=== PATIENT | female | born 1985 | race Two or more races ===

== ENCOUNTER 2024-09-26 05:47 | Emergency (ER) | payer MEDICAID, SELFPAY ==
[2024-09-26] VITALS (9 sets, daily range): BP systolic 129–152; BP diastolic 70–98; PULSE 70–83; RESP 14–20; TEMP 36.7–36.9; O2SAT 97–100; BMI 43.4
--- NOTE | 2024-09-26 05:57 | XR_ITS ---
Examination: PA lateral chest 2 views TECHNIQUE: Upright PA lateral chest 2 views Exam date and time: September 26, 2024 0823 hours INDICATIONS: Left-sided chest pain left breast pain today FINDINGS: Normal heart size Lungs are clear. The osseous structures are intact IMPRESSION: No active disease
--- NOTE | 2024-09-26 05:57 | EKG_ITS ---
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
--- NOTE | 2024-09-26 05:58 | PD.EDRME ---
Rapid Medical Screening Exam RME Arrival date/time: 09/26/24 05:47 39-year-old female presents emergency department complaining of left upper chest pain that radiates towards back and shoulder that started at 4 AM this morning. Patient reports recently had miscarriage. Chief Complaint: General Adult/Misc Complain Vital signs: Vital Signs Temperature 98.3 F 09/26/24 05:55 Pulse Rate 83 09/26/24 05:55 Respiratory Rate 19 09/26/24 05:55 Blood Pressure 139/84 H 09/26/24 05:55 Pulse Oximetry (%) 98 09/26/24 05:55 Oxygen Delivery Method Room Air 09/26/24 05:55 Vital signs reviewed by provider: Yes
--- NOTE | 2024-09-26 06:04 | PC.NURSE ---
Pt to room 6 at this time from lobby. Assumed care of pt.
--- NOTE | 2024-09-26 06:14 | EDNOTE_ITS ---
ED Chest Pain RME/HPI General Chief Complaint: General Adult/Misc Complain Stated Complaint: Left flank pain Since 4am Arrival date/time: 09/26/24 05:47 RME / HPI RME / HPI narrative: 09/26/24 05:47 HPI:39-year-old female known case of HTN, and misccarriage 2 weeks ago and still has a sac not evacauted presented to the ED due to Left sided chest pain, the pain woke her up from sleeping at 4 am, sharp in character, radiate to the b ack. it increases with deep breath. no cough, fever, or flu like symptoms and hx of carrying heavey objects or vigorous physical activity. Home medications:lisinopril PMH:as above PFX:mother of stomache cancer Social hx: Alcohol:socially, last drink yesterday Related Data Home Medications ?Medication ?Instructions ?Recorded ?Confirmed vits no.124-ferrous fum 1 tab PO QDAY 12/24/18 12/24/18 27 mg iron-folic acid 800 mcg tablet ( Vitamin) Previous Rx's ?Medication ?Instructions ?Recorded diphenhydramine HCl 50 mg capsule 50 mg PO TID PRN allergy symptoms 03/25/21 #30 caps lisinopril 20 mg tablet 20 mg PO QDAY hypertension #14 tabs 04/11/21 ibuprofen 400 mg tablet 400 mg PO Q6H PRN chest pain 3 09/26/24 days #18 tabs Allergies Allergy/AdvReac Type Severity Reaction Status Date / Time No Known Allergies Allergy Unverified 09/26/24 05:50 ED Exam Narrative Physical exam: GEN: AOx3, able to speak full sentences HEENT: NC/AC, oral mucosa moist, neck supple CVS: RRR, S1-S2 present, no murmurs appreciated RESP: CTAB GI: soft, non distended, non tender, NBS MSK: able to move all 4 limbs, no lower extremity edema SKIN: warm and dry ROD PULLER AND COILER: CN II-XII and Sensation grossly intact. Course Quality Measures none Orders Category Date Time Status EKG (ED ONLY) *Do not use* NOW Care 09/26/24 05:57 Completed EKG (ED ONLY) *Do not use* NOW Care 09/26/24 12:23 Completed EKG (ED Only) Stat Exams 09/26/24 05:57 Draft EKG (ED Only) Stat Exams 09/26/24 12:23 Draft XR chest 2V Stat Exams 09/26/24 05:57 Completed B-Type Natriuretic Peptide Stat Lab 09/26/24 06:30 Completed Beta HCG,Quantitative Stat Lab 09/26/24 06:30 Completed CBC Stat Lab 09/26/24 06:30 Completed Comprehensive Metabolic Panel Stat Lab 09/26/24 06:30 Completed D-Dimer Stat Lab 09/26/24 06:30 Completed Drug Screen,Urine Stat Lab 09/26/24 06:03 Completed Lipase Stat Lab 09/26/24 06:30 Completed Magnesium Stat Lab 09/26/24 06:30 Completed Partial Thromboplastin Time Stat Lab 09/26/24 06:30 Completed Prothrombin Time with INR Stat Lab 09/26/24 06:30 Completed Troponin I Stat Lab 09/26/24 06:30 Completed Troponin I Stat Lab 09/26/24 12:40 Completed Urinalysis, C/S if Indicated Stat Lab 09/26/24 06:03 Completed Morphine Inj Med 09/26/24 07:03 Discontinued 1 mg IVP X1 ONE Vital Signs Vital signs: Vital Signs Temperature 98.3 F 09/26/24 05:55 Pulse Rate 83 09/26/24 05:55 Respiratory Rate 19 09/26/24 05:55 Blood Pressure 139/84 H 09/26/24 05:55 Pulse Oximetry (%) 98 09/26/24 05:55 Oxygen Delivery Method Room Air 09/26/24 05:55 Chest Pain MDM Narrative MDM Narrative:: EKG came back normal, troponin within normal limits, chest x-ray showed no active disease at this time. Patient reported that she had miscarriage at 8 weeks when she went to visit her doctor who told her that there is no fetus in the sac and she most likely had a miscarriage. She reported that she is following up with the investor relations specialist Archana here in [place]. She reported that she has an appointment with him on the 18 of this month after 5 days to keep monitoring her remaining sac. Patient denied any abdominal pain, vaginal discharge, fever, chills, diarrhea or constipation. Patient data External records reviewed:: [facility] previous records Clinical information provided by:: patient Social determinants that could affect healthcare access:: none Patient has the following chronic illnesses:: HTN How is presenting disease/condition affected by chronic disease/condition?: uneffected by Evaluation data The following diagnostics were reviewed and interpreted by me:: lab results, radiology exam(s) and EKG tracing(s) Lab and/or radiology exams considered but not ordered:: NONE Interpretation Summary: Chest pain most likely of musculoskeletal character versus pleuritic chest pain secondary to simple infection. Medications / Prescriptions Medications or Prescriptions considered but not ordered:: None Medication administrations:: Medication Administration History Discontinued Medications Morphine Sulfate (Morphine Sulf Inj 10 Mg/Ml Vial) 1 mg IVP X1 ONE Stop: 09/26/24 07:04 Last Admin: 09/26/24 08:00 Dose: Not Given Documented By: MS Non-Admin Reason: Patient Refused None Consultations Consultation(s) initiated? (list below): No Diagnosis Most likely diagnosis given after review of the tests above:: Muscleoskeletal pain Admission Indicated Admission indicated?: not indicated Admission Request Was there a request for admission?: No Disposition Plan Disposition Plan: Discharge Discharge Attestation Discharge Attestation: The patient and all family members were given an opportunity to ask questions and understood the discharge instructions. Discharge instructions specifically effects, indications for sooner follow up or return to the emergency department, and the expected course of current diagnosis. Patient condition: Stable Discharge Plan Plan Patient Disposition: HOME (Self Care) Patient condition on transfer: Stable Health Concerns: Follow-up with your primary care physician within 3 days from discharge Follow-up with your investor relations specialist regarding your miscarriage within 3 days from discharge In case of worsening of your pain please return to the ED as soon as possible Use ibuprofen 400 mg orally 4 times a day as needed Prescriptions/Referrals Prescriptions/Med Rec: New ibuprofen 400 mg tablet 400 mg PO Q6H PRN (Reason: chest pain) 3 Days Qty: 18 0RF No Action diphenhydramine HCl 50 mg capsule 50 mg PO TID PRN (Reason: allergy symptoms) Qty: 30 0RF lisinopril 20 mg tablet 20 mg PO QDAY Qty: 14 0RF vit no.[id number] [ Vitamin] 27 mg iron- 800 mcg Tablet 1 tab PO QDAY Referrals: Ania Up MD [Primary Care Provider] - In 1 week Problem List Clinical Impression: Muscle ache, Viral infection Patient/Caregiver Discharge Instructions Education Materials: Communicating About Pain Print Language: Haitian Stand Alone Forms: Lauren Award Info., Patient Portal Info Letter
--- NOTE | 2024-09-26 06:18 | PC.NURSE ---
Resident at the bedside at this time.
[2024-09-26 06:43] LABS: Collection Type, Urine Clean Catch
[2024-09-26 06:45] LABS: Basophils % (Auto) 0 % (0-2.5); Eosinophils # (Auto) 0.3 Thou/mm3 (0.0-0.5); Eosinophils % (Auto) 4 % (0-10); Hemoglobin 12.7 g/dL (12.0-16.0); Immature Granulocytes % (Auto) 0 % (0-0); Immature Granulocytes Auto 0.03 Thou/mm3 (0.00-0.00); Lymphocytes # (Auto) 2.4 Thou/mm3 (1.0-4.8); Lymphocytes % (Auto) 29 % (10-50); Mean Corpuscular HGB Conc 34.3 g/dl (31.0-37.0); Mean Corpuscular Hemoglobin 29.7 pg (25.0-35.0); Mean Corpuscular Volume 86 fL (80-100); Monocytes # (Auto) 0.6 Thou/mm3 (0.0-0.8); Monocytes % (Auto) 7 % (0-12); Neutrophils # (Auto) 4.8 Thou/mm3 (1.8-7.7); Neutrophils % (Auto) 59 % (37-80); Nucleated Red Blood Cell % 0 /100 WBC (0); Platelet Count 250 Thou/mm3 (140-440); RDW Standard Deviation 38.3 fL (36.4-46.3); Red Blood Count 4.28 Miln/mm3 (4.00-5.20); White Blood Count 8.1 Thou/mm3 (3.6-11.0)
[2024-09-26 06:59] LABS: Bilirubin,Urine Negative (Negative); Blood,Urine Trace (Negative); Clarity,Urine Clear (Clear/Hazy); Color,Urine Yellow (Lt Yel-Yel); Culture Indicated,Urine Not Indicated; Glucose, Urine Negative (Negative); Ketones,Urine 1+ (Negative); Leukocyte Esterase,Urine Positive (Negative); Nitrite,Urine Negative (Negative); Protein,Urine Trace (Neg - Trace); RBC,Urine 4 /hpf (0-3); Specific Gravity,Urine 1.018 (1.001-1.035); Squamous Epithelial Cell,Urine 3 /hpf (0-5); Urobilinogen,Urine Negative mg/dL (0.0-1.0); WBC,Urine 2 /hpf (0-5)
[2024-09-26 07:02] LABS: D-Dimer < 250 ng/mL (<600)
[2024-09-26 07:04] LABS: Partial Thromboplastin Time 23.4 Seconds (22.0-36.0); Prothrombin Time 10.9 Seconds (9.0-12.2)
[2024-09-26 07:05] LABS: B-Type Natriuretic Peptide < 20 pg/mL (0-100)
[2024-09-26 07:12] LABS: Alanine Aminotransferase 11 U/L (10-49); Albumin, Serum 4.4 gm/dL (3.5-5.0); Albumin/Globulin Ratio 1.7 (1.2-2.2); Alkaline Phosphatase 64 U/L (46-116); Anion Gap 6 (7-16); Aspartate Amino Transferase 14 U/L (0-34); BUN/Creatinine Ratio 8 Ratio (12-20); Bilirubin,Total 0.5 mg/dL (0.3-1.2); Blood Urea Nitrogen < 5 mg/dL (9-23); Calcium 9.3 mg/dL (8.3-10.6); Calcium (Corrected) 9.3 mg/dL (8.5-10.1); Carbon Dioxide 22.8 mMol/L (20.0-31.0); Chloride 106 mMol/L (98-107); Creatinine (Component) 0.6 mg/dL (0.6-1.3); Estimated Creatinine Clearance 139.9 mL/min (>60); Globulin 2.6 gm/dL (2.3-3.5); Glucose 93 mg/dL (74-106); Lipase 30 U/L (12-53); Magnesium 1.6 mg/dL (1.6-2.6); Osmolality,Calculated 267 (275-295); Potassium 3.6 mMol/L (3.4-5.1); Sodium 135 mMol/L (136-145); Troponin I < 0.002 ng/mL (0.0-0.045); eGFR > 60 See Note
[2024-09-26 07:12] LABS: Amphetamine/Methamp Scrn,U Negative (Negative); Barbiturate Screen,Urine Negative (Negative); Benzodiazepines Screen,Urine Negative (Negative); Benzoylecgonine Screen, Ur Negative (Negative); Fentanyl Screen,Urine Negative (Negative); Opiate Screen,Urine Negative (Negative); THC Screen,Urine Negative (Negative)
[2024-09-26 07:31] LABS: Beta HCG,Quantitative 8624 mIU/mL (<5.0)
--- NOTE | 2024-09-26 12:23 | EKG_ITS ---
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
[2024-09-26 13:04] LABS: Troponin I < 0.002 ng/mL (0.0-0.045)
== END 2024-09-26 16:10 | disposition home or self-care (01) ==
PROVIDERS: Student in an Organized Health Care Education/Training Program; Emergency Provider Emergency Medicine; PCP Obstetrics & Gynecology
DX: B34.9 Viral infection, unspecified (principal); N64.4 Mastodynia; R07.9 Chest pain, unspecified; I10 Essential (primary) hypertension
CPT/HCPCS: 36415; 71046; 80053; 80307; 81001; 83690; 83735; 83880; 84484; 84702; 84703; 85025; 85379; 85610; 85730; 93005; 99283

== ENCOUNTER 2025-03-12 11:27 | Outpatient (AMB) | payer MEDICAID, SELFPAY ==
--- NOTE | 2025-03-12 11:41 | OBCLNT_ITS ---
Vital Signs 03/12/25 11:44 Height 1.55 m Height Method Stated Weight 106.141 kg Weight Measurement Method Standing Scale BMI 44.1 BP 133/83 H Blood Pressure Source Automatic Cuff Blood Pressure Location Right Upper Arm Position Sitting Respiration 20 Pulse 82 Pulse Source Monitor Temp 98.4 F Temp Source Temporal Artery Scan Pulse Oximetry (%) 98 Oxygen Delivery Method Room Air Allergies/Home Meds Allergies & Medications Allergies No Known Allergies Allergy (Unverified 03/12/25 11:45) Medication Reconciliation vits no.124-ferrous fum 27 mg iron-folic acid 800 mcg tablet ( Vitamin) 1 tab PO QDAY 12/24/18 [History Confirmed 03/12/25] diphenhydramine HCl 50 mg capsule 50 mg PO TID PRN allergy symptoms #30 caps 03/25/21 [Rx Confirmed 03/12/25] lisinopril 20 mg tablet 20 mg PO QDAY hypertension #14 tabs 04/11/21 [Rx Confirmed 03/12/25] Intake Visit Data Collection New Patient or Established: Established Patient (seen at [facility] within 3 years) Reason for Visit:: First appointment for , nausea without vomiting, dizziness when getting up too fast, breast tenderness Do You Feel Safe at Home: Yes Authorities Contacted: N/A PCP or OBGYN visit in last 3 months: Yes Pain Present Currently: No Smoking Status Smoking Status: Never smoker Questionnaires Covid-19 Vaccine Questionnaire Has patient been vacinated for Covid-19 Have you been vacinated for Covid-19: Yes PHQ-9 PHQ-2 Over the last 2 weeks, how often have you been bothered by any of the following problems? 1. Little interest or pleasure in doing things: not at all 2. Feeling down, depressed, or hopeless: not at all Total score: 0 Depression screen completed yes Social History Living Situation History Marital Status: Lives With: Spouse Housing: House Tobacco History Smoking Status: Never smoker Alcohol History Alcohol Intake: Never Domestic Abuse History Do You Feel Safe at Home: Yes Past Medical History Past Medical History Have you ever been diagnosed with any of the following: Cardiology Problems Congestive Heart Failure: No Hypertension: Yes Respiratory Problems Chronic Obstructive Pulmonary Disease (COPD): No Genital/Urinary Problems Renal Disease: No Endocrine Problems Diabetes Mellitus Type 1: No Diabetes Mellitus Type 2: No History of Present Illness COLLETTE Pimentel Fouzia Sloan, a patient with a history of hypertension and a previous miscarriage at 17 weeks due to trisomy 18, presents for her first appointment. Her last menstrual period was on December 29, 2024, placing her at 10 weeks and 3 days gestation with an estimated due date of October 05, 2025. The patient reports experiencing early symptoms, including nausea without vomiting, dizziness upon standing up quickly, and breast tenderness. She denies any other problems related to her current . Ms. Sloan is currently taking vitamins as recommended. Regarding her medical history, the patient has been diagnosed with hypertension and is currently taking labetalol 100 mg twice daily, prescribed by Dr. Sheriff. This medication was initially started during her previous in 2022, which ended in miscarriage at 17 weeks. The patient reports that she has continued the medication since then and feels it has been more effective than previous treatments. She denies any history of pre-eclampsia or other - related complications in her prior pregnancies. The patient's previous was complicated by abnormalities detected on ultrasound, including signs of hydrocephalus. An amniocentesis was performed, which revealed trisomy 18, ultimately leading to the miscarriage at 17 weeks gestation. The patient received care for this at [facility]. Obstetric History - GTPAL: G2 T0 L0 - Current : - Gestational age: 10 weeks and 3 days by last menstrual period - Estimated due date: October 05, 2025 - history: - Miscarriage at 17 weeks gestation in 2022 - Fetus diagnosed with trisomy 18 via amniocentesis - Ultrasound showed signs of hydrocephalus Medical History - Hypertension diagnosed in 2022, controlled with medication Surgical History - Amniocentesis during previous at 17 weeks gestation Medications and Supplements - vitamins - Labetalol 100 mg by mouth twice daily - Started in 2022 during previous - Continued after miscarriage - Patient feels it works better than other medications Review of Systems General: Positive for dizziness upon standing. HEENT: Positive for breast tenderness. Gastrointestinal: Positive for nausea without vomiting. OB Ultrasound OB Ultrasound Ultrasound technique: transabdominal Gestational sac assessment: Presence, location, size, shape: - Ultrasound (03/12/2025): - Gestational age: 9 weeks and 2 days - heart rate: 173 bpm (normal) - Anatomically normal appearance OB Initial Visit OB Flowsheet OB Flowsheet Initial Weight: Not Recorded Date -?-?-?-?-?-?-?-?-?-?-?-?- EGA Weight Edema CTX Effacement BP Fundal ht Pres Dilation Effacement Station Visit Note Alb Glu FHR Mov 03/12/25 -?-?-?-?-?-?-?-?-?-?-?-?- 10w 3d 106.141 kg 133/83 Nico ashly Sloan, A1 at 10w3d (LMP 12/29/2024, QUINN: 10/05/2025), presents for initial visit. No CTX/LOF/VB. Reports dizziness when st anding, breast tenderness, and nausea without vomiting. History of miscarriage at 17w in 2022 due to trisomy 18. Current meds: labetalol 100 mg BID (ongoing since 2022). Ultrasound (03/12/2025): Single IUP, CRL consistent with 9w2d, FHR 173 bpm, anatomically normal appearance. BP: Elevated. Assessment & Plan: A1 at 10w3d, first visit. H istory of trisomy 18 and chronic hypertension. Order initial OB labs: blood type, infec tious panel Provide genetic screening form (trisomie s 13, 18, 21) Continue vitamins Continue labetalol 100 mg BID Recheck BP at next visit; monitor for pr e-eclampsia Educate on early symptoms and positional dizziness Follow-up in 10 days for lab review Refer to MFM in 2nd trimester due to zion or trisomy 18 Reviewed education and warning signs Menstrual History Menstrual reliability: definite Flow: normal Menstrual regularity: regular Monthly: Yes Age at menarche: 12 Date of positive home test: 02/04/25 OB History : 7 Para: 4 Hx Total # of Abortions (Spontaneous & Elective): 3 # of Living Children: 4 Delivery History 1st : Child's name: frankie date: 01/14/02 sex: male Gestational age at delivery (weeks): 29 Delivery type: vaginal weight (lbs): 1360.777 g History of depression before or after : Yes 2nd : Child's name: radha date: 06/09/04 sex: female Gestational age at delivery (weeks): 40 Delivery type: vaginal weight (lbs): 4082.331 g History of depression before or after : Yes Additional comments: after pregnacy 3rd : Child's name: ann date: 06/09/17 sex: male Gestational age at delivery (weeks): 41 Delivery type: vaginal weight (lbs): 3175.147 g weight (oz): 56.699 g History of depression before or after : No 4th : Child's name: stefania date: 12/22/18 sex: male Gestational age at delivery (weeks): 41 Delivery type: vaginal weight (lbs): 3628.739 g History of depression before or after : No Infection History & Risk Evaluation History of STDs: none HIV risk evaluation: low risk Hepatitis B risk evaluation: low risk Patient or partner has history of Genital Herpes: No Varicella/chicken pox status: immunized Genetic Screening & History Genetic Screening/Teratology Counseling - Includes patient, baby's father, or anyone in either family with: 1. Patient's age 35 years or older as of estimated date of delivery: Yes 2. Thalassemia (Guatemalan, Dominican, Mediterranean, or Background); MCV less than 80: No 3. Neural Tube Defect (Meningomyelocele, Spina Bifida, or Anencephaly): No 4. Congenital Heart Defect: No 5. Down Syndrome: No 6. Wicho-Sachs (Ashkenazi Bahai, Cajun, Slovenian Fijian): No 7. Zena Disease (Ashkenazi Bahai): No 8. Familial Dysautonomia (Ashkenazi Bahai): No 9. Sickle Cell Disease or Trait (): No 10. Hemophilia or other blood disorders: No 11. Muscular Dystrophy: No 12. Cystic Fibrosis: No 13. Florina's Chorea: No 14. Mental Retardation/Autism: No 15. Other inherited genetic or chromosomal disorder: No 16. Maternal Metabolic Disorder (EG,TYPE 1 Diabetes, PKU): No 17. Patient or baby's father had a child with defects not listed above: No 18. Recurrent loss or a stillbirth: No 19. Medications (including supplements, vitamins, herbs or otc drugs)/illicit/recreational drugs/alcohol since last menstrual period: No 20. Any other: No Infection History 1. Live with someone with TB or exposed to TB: No 2. Rash or viral illness since last menstrual period: No 3. Hepatitis B,C: No Other (see comments) Source: [employer] Exam General Limitations: no limitations General Appearance: alert, in no apparent distress and comfortable Head Head exam: atraumatic and normocephalic Eye Eye exam: Present normal appearance, PERRL and EOMI Neck Neck exam: Present normal inspection and full ROM Chest Chest inspection: Present normal inspection and symmetric chest wall rise; Absent tenderness Resp Respiratory exam: Present normal lung sounds bilaterally; Absent respiratory distress Card Cardiovascular exam: Present regular rate and normal rhythm Abdominal Abdominal exam: Present soft and normal bowel sounds; Absent tenderness, guarding, rebound or rigidity Neuro Neurological exam: Present alert and oriented X3 Psych Psychiatric exam: Present normal affect Assessment & Plan Diagnosis / Problem List (1) Supervision of high risk , unspecified, first trimester: Status: Acute Plan Fouzia Sloan is a patient at 10 weeks and 3 days gestation presenting for her first visit with a history of miscarriage at 17 weeks due to trisomy 18 in a previous . Intrauterine Assessment: Patient reports last menstrual period on December 29, which calculates to an estimated due date of October 05. Ultrasound performed today shows a single intrauterine measuring 9 weeks and 2 days, which is consistent with dates. heartbeat visualized at 173 bpm, which is within normal range. No obvious abnormalities noted on ultrasound at this early gestational age. Plan: - Perform initial lab work including blood type, infection screening - Provide genetic screening form for Down syndrome and other trisomies (13, 18, 21) - Continue vitamins - Follow-up appointment in 10 days to review lab results - Plan for maternal- medicine consultation in the second trimester due to history of trisomy 18 in previous Chronic hypertension Assessment: Patient reports current use of labetalol 100 mg BID for hypertension, prescribed by Dr. Sheriff in 2022 during a previous . Patient states the medication has been effective in controlling her blood pressure. Labetalol is considered safe for use during . Plan: - Continue labetalol 100 mg PO BID - Recheck blood pressure at next visit - Monitor for signs of pre-eclampsia throughout Early symptoms Assessment: Patient reports nausea without vomiting, dizziness upon standing, and breast tenderness. These symptoms are consistent with normal early changes. Plan: - Reassure patient that symptoms are normal - Educate on management of early symptoms - Monitor for worsening of symptoms at follow-up visits Educated the patient on the importance of care, including taking vitamins with folic acid, iron, and calcium. Emphasized avoiding alcohol, smoking, and certain medications. Discussed common symptoms like nausea and fatigue, advising small, frequent meals and adequate hydration. Explained the need for regular check-ups and recommended safe physical activities. Instructed on signs of complications, such as severe cramping or bleeding, and when to seek immediate medical attention. Highlighted the importance of a balanced diet and avoiding high-risk foods. Encouraged open communication about any concerns or questions. Encouraged keeping up with all appointments and tests Office Procedures OB Clinic LOC & Office Proc's Nursing/Assessment Patient Status: Initial/New Patient OB Clinic Nursing Assessment: Medication Reconciliation, Update PMH in EMR and Vital Signs OB Clinic Coordination of Care: Complex Care and Chronic Disease 1-5, Education Complex Pt/Fam, Consent,records obtained, informed consent, Lab and Imaging orders, Results/Orders obtained and Staff clarify orders New Patient Charge New Patient Point Assignment: 1109 New Patient Point Charge: SHELTER MONITOR Level 3 ([id number]) Bedside Ultrasounds US Transabdominal <14 weeks at bedside: Yes
[2025-03-12 11:44] VITALS: BP 133/83; PULSE 82; RESP 20; TEMP 36.9; O2SAT 98; BMI 44.1
== END 2025-03-12 12:02 | disposition home or self-care (01) ==
LOC: HODSOBC 11:27
PROVIDERS: PCP Obstetrics & Gynecology; Referring Provider Obstetrics & Gynecology; Supervising Provider Obstetrics & Gynecology; Visit Provider Obstetrics & Gynecology
DX: O09.521 Supervision of elderly multigravida, first trimester (principal); O09.291 Supervision of pregnancy with other poor reproductive or obstetric history, first trimester; O09.891 Supervision of other high risk pregnancies, first trimester; O10.911 Unspecified pre-existing hypertension complicating pregnancy, first trimester; Z87.59 Personal history of other complications of pregnancy, childbirth and the puerperium; Z3A.10 10 weeks gestation of pregnancy; Z79.899 Other long term (current) drug therapy
CPT/HCPCS: 76801; 99203; G0463

== ENCOUNTER 2025-03-26 09:03 | Outpatient (AMB) | payer MEDICAID, SELFPAY ==
[2025-03-26 09:28] VITALS: BP 127/84; PULSE 85; RESP 18; TEMP 36.2; O2SAT 98; BMI 44.4
--- NOTE | 2025-03-26 09:28 | AMB.OBVISIT ---
Vital Signs 03/26/25 09:28 Height 1.55 m Height Method Stated Weight 106.651 kg Weight Measurement Method Standing Scale BMI 44.4 BP 127/84 Blood Pressure Source Automatic Cuff Blood Pressure Location Left Upper Arm Position Sitting Respiration 18 Pulse 85 Pulse Source Monitor Temp 97.2 F Temp Source Oral Pulse Oximetry (%) 98 Oxygen Delivery Method Room Air Allergies/Home Meds Allergies & Medications Allergies No Known Allergies Allergy (Verified 03/26/25 09:29) Medication Reconciliation vits no.124-ferrous fum 27 mg iron-folic acid 800 mcg tablet ( Vitamin) 1 tab PO QDAY 12/24/18 [History Confirmed 03/26/25] diphenhydramine HCl 50 mg capsule 50 mg PO TID PRN allergy symptoms #30 caps 03/25/21 [Rx Confirmed 03/26/25] lisinopril 20 mg tablet 20 mg PO QDAY hypertension #14 tabs 04/11/21 [Rx Confirmed 03/26/25] Intake Visit Data Collection New Patient or Established: Established Patient (seen at [facility] within 3 years) Reason for Visit:: - Routine care at 12 weeks and 3 days gestation Seen by Clinical Staff ONLY (RN/MA): No 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 1. Little interest or pleasure in doing things: not at all 2. Feeling down, depressed, or hopeless: not at all Total score: 0 PHQ-9 3. Trouble falling or staying asleep, or sleeping too much: Not at all 4. Feeling tired or having little energy: Not at all 5. Poor appetite or overeating: Not at all 6. Feeling bad about yourself - or that you are a failure or have let yourself or your family down: Not at all 7. Trouble concentrating on things, such as reading the newspaper or watching television: Not at all 8. Moving or speaking so slowly that other people could have noticed? - Or the opposite - being so fidgety or restless that you have been moving around a lot more than usual: not at all 9. Thoughts that you would be better off or of hurting yourself in some way: Not at all Total score: 0 If you checked off any problems, how difficult have these problems made it for you to do your work, take care of things at home, or get along with other people?: not difficult at all Source: Developed by Drs. Hugo Vargas, Padmini Bazzi, Reji Restrepo and colleagues, with an educational micah from [employer]. 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 - Estimated delivery date: 10/05/2025 - Last menstrual period: 12/29/2024 - Previous visit: - Initial appointment - Lab tests ordered - Patient completed initial labs on 03/22/2025 No contractions/ LOF/VB, No HODGES/VC/RUQ/Epig pain Care OB Visit Log OB Flowsheet Initial Weight: Not Recorded Date <del>?</del> EGA Weight BP Alb Glu CTX Pres Fundal ht FHR Mov Dilation Station Effacement Hx Notes Visit Note 03/12/25 <del>?</del> 10w 3d 106.141 kg 133/83 Fouzia Sloan, A1 at 10w3d (LMP 12/29/2024, QUINN: 10/05/2025), presents for initial visit. No CTX/LOF/VB. Reports dizziness when standing, breast tenderness, and nausea without vomiting. History of miscarriage at 17w in 2022 due to trisomy 18. Current meds: labetalol 100 mg BID (ongoing since 2022). Ultrasound (03/12/2025): Single IUP, CRL consistent with 9w2d, FHR 173 bpm, anatomically normal appearance. BP: Elevated. Assessment & Plan: A1 at 10w3d, first visit. History of trisomy 18 and chronic hypertension. Order initial OB labs: blood type, infectious panel Provide genetic screening form (trisomies 13, 18, 21) Continue vitamins Continue labetalol 100 mg BID Recheck BP at next visit; monitor for pre-eclampsia Educate on early symptoms and positional dizziness Follow-up in 10 days for lab review Refer to MFM in 2nd trimester due to prior trisomy 18 Reviewed education and warning signs 03/26/25 <del>?</del> 12w 3d 106.651 kg 127/84 Fouzia Sloan, at 12w3d (QUINN 10/05/2025, LMP 12/29/2024), presents for routine follow-up. She completed her initial labs on 03/22/2025. No complaints today. Denies CTX/LOF/VB. Reports good movement for gestational age. Initial lab results: Hepatitis B & C: Negative RPR: Non-reactive Rubella: Immune HIV: Negative Gonorrhea & Chlamydia: Negative Blood type: A positive, antibody screen negative Maternity 21: Negative for trisomies, female fetus Cystic fibrosis screening: Negative Plan: Continue routine care Review anatomy ultrasound schedule between 18?22 weeks Return in 4 weeks for next visit Routine counseling provided QUINN Calculator Estimated Delivery Date Method Current WG Current Estimate 10/05/25 LMP (Certain) 14w 2d Exam General General Appearance: alert, in no apparent distress and healthy appearing Head Head exam: atraumatic Neck Neck exam: Present normal inspection and trachea midline Chest Chest inspection: Present normal inspection and symmetric chest wall rise External exam: Present normal external exam; Absent tenderness Neuro Neurological exam: Present oriented X3 Psych Psychiatric exam: Present normal affect and normal mood Office Procedures OB Clinic LOC & Office Proc's Nursing/Assessment Patient Status: Established Patient OB Clinic Nursing Assessment: Medication Reconciliation, Update PMH in EMR and Vital Signs OB Clinic Coordination of Care: Complex Care and Chronic Disease 1-5, Consent,records obtained, informed consent, Education Simp Pt/Fam, Lab and Imaging orders and Staff clarify orders Special Needs: Heart tones Established Patient Charge Established Patient Point Assignment: 130 Established Patient Point Charge: EP Level 4 (120-155) Assessment & Plan Diagnosis / Problem List (1) Supervision of high risk , unspecified, second trimester: Status: Acute Plan Problem List - , 12 weeks and 3 days gestation - 7, Para 4134 Assessment - Intrauterine at 12 weeks and 3 days gestation - 7, para 4134 - Estimated delivery date 10/05/2025 - Last menstrual period 12/29/2024 - Initial labs: - Hepatitis B negative - Hepatitis C negative - RPR non-reactive - Rubella immune - Blood type A positive - Negative antibody screen - HIV negative - Gonorrhea and chlamydia negative - Maternity 21 testing negative, female fetus - Cystic fibrosis carrier screening negative Educated the patient on labor signs, including regular contractions, lower back pain, and changes in vaginal discharge. Advised avoiding heavy lifting and getting adequate rest. Instructed to contact the office immediately if any signs occur. Discussed the importance of a balanced diet rich in folic acid, iron, and calcium, and provided a list of recommended and to-avoid foods. Emphasized avoiding high-sugar foods to reduce gestational diabetes risk. Encouraged hydration and frequent, small meals for energy..
== END 2025-03-26 09:55 | disposition home or self-care (01) ==
LOC: HODSOBC 09:03
PROVIDERS: PCP Obstetrics & Gynecology; Referring Provider Obstetrics & Gynecology; Supervising Provider Obstetrics & Gynecology; Visit Provider Obstetrics & Gynecology
DX: O09.521 Supervision of elderly multigravida, first trimester (principal); Z3A.12 12 weeks gestation of pregnancy
CPT/HCPCS: 99214; G0463

== ENCOUNTER 2025-04-26 10:34 | Outpatient (AMB) | payer MEDICAID, SELFPAY ==
[2025-04-26 11:10] VITALS: BP 132/84; PULSE 96; RESP 18; TEMP 36; O2SAT 98; BMI 44.9
--- NOTE | 2025-04-26 11:10 | OBCLNT_ITS ---
Vital Signs 04/26/25 11:10 Height 1.55 m Height Method Stated Weight 108.068 kg Weight Measurement Method Standing Scale BMI 44.9 BP 132/84 H Blood Pressure Source Automatic Cuff Blood Pressure Location Left Upper Arm Position Sitting Respiration 18 Pulse 96 Pulse Source Monitor Temp 96.8 F Temp Source Oral Pulse Oximetry (%) 98 Oxygen Delivery Method Room Air Allergies/Home Meds Allergies & Medications Allergies No Known Allergies Allergy (Verified 04/26/25 11:11) Medication Reconciliation vits no.124-ferrous fum 27 mg iron-folic acid 800 mcg tablet ( Vitamin) 1 tab PO QDAY 12/24/18 [History Confirmed 04/26/25] diphenhydramine HCl 50 mg capsule 50 mg PO TID PRN allergy symptoms #30 caps 03/25/21 [Rx Confirmed 04/26/25] lisinopril 20 mg tablet 20 mg PO QDAY hypertension #14 tabs 04/11/21 [Rx Confirmed 04/26/25] Intake Visit Data Collection New Patient or Established: Established Patient (seen at [facility] within 3 years) Reason for Visit:: OBC Seen by Clinical Staff ONLY (RN/MA): No 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 1. Little interest or pleasure in doing things: not at all 2. Feeling down, depressed, or hopeless: not at all Total score: 0 PHQ-9 3. Trouble falling or staying asleep, or sleeping too much: Not at all 4. Feeling tired or having little energy: Not at all 5. Poor appetite or overeating: Not at all 6. Feeling bad about yourself - or that you are a failure or have let yourself or your family down: Not at all 7. Trouble concentrating on things, such as reading the newspaper or watching television: Not at all 8. Moving or speaking so slowly that other people could have noticed? - Or the opposite - being so fidgety or restless that you have been moving around a lot more than usual: not at all 9. Thoughts that you would be better off or of hurting yourself in some way: Not at all Total score: 0 If you checked off any problems, how difficult have these problems made it for you to do your work, take care of things at home, or get along with other people?: not difficult at all Source: Developed by Drs. Hugo Vargas, Padmini Bazzi, Reji Restrepo and colleagues, with an educational micah from [employer]. 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 Denies HODGES, VC, and epigastric pain. - Fouzia Sloan is a 39-year-old presenting for care at 16 weeks and 6 days gestation. - This is her third visit at this clinic. - Patient reports: - Nausea is improving - Overall feeling good - Medical history: - Chronic hypertension, managed with labetalol - Recent healthcare interactions: - Ultrasound performed at the hospital on the day of visit Review of Systems Review of Systems Systems Reviewed: All systems reviewed, normal except as documented Care OB Visit Log OB Flowsheet Initial Weight: Not Recorded Date -?-?-?-?-?-?-?-?-?-?-?-?- EGA Weight BP Alb Glu CTX Pres Fundal ht FHR Mov Dilation Station Effacement Hx Notes Visit Note 03/12/25 -?-?-?-?-?-?-?-?-?-?-?-?- 10w 3d 106.141 kg 133/83 Fouzia Sloan, A1 at 10w3d (LMP 12/29/2024, QUINN: 10/05/2025), presents for initial visit. No CTX/LOF/VB. Reports dizziness when st anding, breast tenderness, and nausea without vomiting. History of miscarriage at 17w in 2022 due to trisomy 18. Current meds: labetalol 100 mg BID (ongoing since 2022). Ultrasound (03/12/2025): Single IUP, CRL consistent with 9w2d, FHR 173 bpm, anatomically normal appearance. BP: Elevated. Assessment & Plan: A1 at 10w3d, first visit. H istory of trisomy 18 and chronic hypertension. Order initial OB labs: blood type, infec tious panel Provide genetic screening form (trisomie s 13, 18, 21) Continue vitamins Continue labetalol 100 mg BID Recheck BP at next visit; monitor for pr e-eclampsia Educate on early symptoms and positional dizziness Follow-up in 10 days for lab review Refer to MFM in 2nd trimester due to zion or trisomy 18 Reviewed education and warning signs 03/26/25 -?-?-?-?-?-?-?-?-?-?-?-?- 12w 3d 106.651 kg 127/84 Fouzia Sloan, at 12w3d (QUINN 10/05/2025, LMP 12/29/2024), presents for routine follow-up. She completed her initial labs on 03/22/2025. No complaints today. Denies CTX/LOF/VB. Reports good movement for gestational age. Initial lab results: Hepatitis B & C: Negative RPR: Non-reactive Rubella: Immune HIV: Negative Gonorrhea & Chlamydia: Negative Blood type: A positive, antibody screen negative Maternity 21: Negative for trisomies, fe male fetus Cystic fibrosis screening: Negative Plan: Continue routine care Review anatomy ultrasound schedule betwe en 18?22 weeks Return in 4 weeks for next visi t Routine counseling provided 04/26/25 -?-?-?-?-?-?-?-?-?-?-?-?- 16w 6d 108.068 kg 132/84 at 16w6d, presents for routine visit. Nausea improving, feeling well overall. Chronic hypertension on labetalol, BP well controlled at 130s. US performed today: single IUP with variable presentation, FHT 141 bpm, posterior placenta, normal ANISHA and cervix, no anomalies seen. Plan: Continue labetalol. F/u in 4 weeks . Schedule anatomy scan in [place] at 20?24 weeks. Monitor BP closely. heart tones: 141 bpm. presentation: Variable. Laboratory, Imaging, and Diagnostic Test Results - Date: TueApr 26 2025 - Ultrasound: - Single amniotic sac (not twins) - presentation: Variable - heart rate: 141 bpm - Placenta: Posterior - Umbilical cord: Visualized - Amniotic fluid volume: Adequate - Cervix: Normal - Survey of intracranial, spinal, ab domen, 4-chamber heart: No abnormalities - All measurements appropriate for s econd trimester QUINN Calculator Estimated Delivery Date Method Current WG Current Estimate 10/05/25 LMP (Certain) 17w 4d Exam General General Appearance: alert, in no apparent distress and healthy appearing Head Head exam: atraumatic Neck Neck exam: Present normal inspection and trachea midline Chest Chest inspection: Present normal inspection and symmetric chest wall rise External exam: Present normal external exam; Absent tenderness Neuro Neurological exam: Present oriented X3 Psych Psychiatric exam: Present normal affect and normal mood Office Procedures OB Clinic LOC & Office Proc's Nursing/Assessment Patient Status: Established Patient OB Clinic Nursing Assessment: Medication Reconciliation, Update PMH in EMR and Vital Signs OB Clinic Coordination of Care: Education Complex Pt/Fam, Consent,records obtained, informed consent, Lab and Imaging orders, Results/Orders obtained and Staff clarify orders Special Needs: Heart tones Established Patient Charge Established Patient Point Assignment: 115 Established Patient Point Charge: EP Level 3 (80-115) Assessment & Plan Diagnosis / Problem List (1) Supervision of high risk , unspecified, second trimester: Status: Acute Plan Problem List - , 16 weeks and 6 days gestation - Chronic hypertension Assessment 39-year-old female at 16 weeks and 6 days gestation presenting for care. Chronic hypertension managed with labetalol. Single intrauterine confirmed by ultrasound with heart rate of 141 bpm. Ultrasound findings include posterior placenta, adequate amniotic fluid volume, normal cervix, and no apparent abnormalities noted in intracranial, spinal, abdominal, or cardiac structures. Variable presentation observed. Patient reports improving nausea symptoms. Blood pressure recorded as 130, indicating good control on current medication regimen. Plan - Continue labetalol for chronic hypertension - Next visit scheduled in 4 weeks - Detailed ultrasound to be performed in [place] between 20-24 weeks gestation - Monitor blood pressure closely This visit does not meet the criteria for the provided format request. The patient is at 16 weeks and 6 days gestation, which is less than 20 weeks. Additionally, this is not an initial visit. Therefore, the given format is not applicable to this specific visit.
== END 2025-04-26 11:07 | disposition home or self-care (01) ==
LOC: HODSOBC 10:34
PROVIDERS: PCP Obstetrics & Gynecology; Referring Provider Obstetrics & Gynecology; Supervising Provider Obstetrics & Gynecology; Visit Provider Obstetrics & Gynecology
DX: O09.522 Supervision of elderly multigravida, second trimester (principal); O09.892 Supervision of other high risk pregnancies, second trimester; O10.912 Unspecified pre-existing hypertension complicating pregnancy, second trimester; Z3A.16 16 weeks gestation of pregnancy; Z79.899 Other long term (current) drug therapy
CPT/HCPCS: 99213; G0463

== ENCOUNTER → 2025-04-26 | Outpatient (CLI) | payer MEDICAID, SELFPAY ==
--- NOTE | 2025-04-26 08:45 | XR_ITS ---
Examination: Complete OB ultrasound greater than 14 weeks Date and time of exam: April 26, 2025 0920 hours INDICATIONS: Diagnosis supervision high risk Findings: Viable intrauterine single fetus with single amniotic sac presentation variable Cardiac motion 141 BPM Placenta posterior fundal grade 2 Umbilical cord insertion seen Amniotic fluid volume adequate Cervix 4.1 cm Ovaries obscured by bowel gas. Composite estimated gestational age based on BPD, head circumference, abdominal circumference, femur length is 16 weeks 5 days Estimated weight 167.9 g. Survey of intracranial anatomy, spinal anatomy, abdominal anatomy, four-chamber heart performed with no abnormalities identified. Impression: Viable intrauterine gestation variable presentation.
== END | disposition home or self-care (01) ==
LOC: CDIM 08:51
PROVIDERS: PCP Obstetrics & Gynecology; Referring Provider Obstetrics & Gynecology; Visit Provider Obstetrics & Gynecology
DX: O09.91 Supervision of high risk pregnancy, unspecified, first trimester (principal)
CPT/HCPCS: 76805

== ENCOUNTER 2025-05-28 15:28 | Outpatient (AMB) | payer MEDICAID, SELFPAY ==
[2025-05-28 15:42] VITALS: BP 130/79; PULSE 86; RESP 18; TEMP 36.7; O2SAT 98; BMI 45.3
--- NOTE | 2025-05-28 15:42 | OBCLNT_ITS ---
Vital Signs 05/28/25 15:42 Height 1.55 m Height Method Stated Weight 108.976 kg Weight Measurement Method Standing Scale BMI 45.3 BP 130/79 Blood Pressure Source Automatic Cuff Blood Pressure Location Right Upper Arm Position Sitting Respiration 18 Pulse 86 Pulse Source Monitor Temp 98.0 F Temp Source Temporal Artery Scan Pulse Oximetry (%) 98 Oxygen Delivery Method Room Air Allergies/Home Meds Allergies & Medications Allergies No Known Allergies Allergy (Verified 05/28/25 15:43) Medication Reconciliation vits no.124-ferrous fum 27 mg iron-folic acid 800 mcg tablet ( Vitamin) 1 tab PO QDAY 12/24/18 [History Confirmed 05/28/25] diphenhydramine HCl 50 mg capsule 50 mg PO TID PRN allergy symptoms #30 caps 03/25/21 [Rx Confirmed 05/28/25] lisinopril 20 mg tablet 20 mg PO QDAY hypertension #14 tabs 04/11/21 [Rx Confirmed 05/28/25] aspirin 81 mg tablet 81 mg PO QDAY 90 days #90 tabs 05/28/25 [Rx] Intake Visit Data Collection New Patient or Established: Established Patient (seen at [facility] within 3 years) Reason for Visit:: OBC Seen by Clinical Staff ONLY (RN/MA): No Blood Bank Custodian Required: No Do You Feel Safe at Home: Yes Authorities Contacted: N/A PCP or OBGYN visit in last 3 months: Yes Date of Last PCP or OBGYN visit: 04/26/25 Hx Now: Yes Are you currently on any form of Control: No Pain Present Currently: No Pain Scale Used: Garcia-Mai/Numerical Pain scale:: 0 Smoking Status Smoking Status: Never smoker Questionnaires Covid-19 Vaccine Questionnaire Has patient been vacinated for Covid-19 Have you been vacinated for Covid-19: No PHQ-9 PHQ-2 Over the last 2 weeks, how often have you been bothered by any of the following problems? 1. Little interest or pleasure in doing things: not at all 2. Feeling down, depressed, or hopeless: not at all Total score: 0 PHQ-9 3. Trouble falling or staying asleep, or sleeping too much: Not at all 4. Feeling tired or having little energy: Not at all 5. Poor appetite or overeating: Not at all 6. Feeling bad about yourself - or that you are a failure or have let yourself or your family down: Not at all 7. Trouble concentrating on things, such as reading the newspaper or watching television: Not at all 8. Moving or speaking so slowly that other people could have noticed? - Or the opposite - being so fidgety or restless that you have been moving around a lot more than usual: not at all 9. Thoughts that you would be better off or of hurting yourself in some way: Not at all Total score: 0 If you checked off any problems, how difficult have these problems made it for you to do your work, take care of things at home, or get along with other people?: not difficult at all Source: Developed by Drs. Hugo Vargas, Padmini Bazzi, Reji Restrepo and colleagues, with an educational micah from [employer]. 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 No contractions, LOF, VB and reports good FM. Denies HODGES, VC, and epigastric pain. - Fouzia Sloan is a 7 para 4 patient presenting for a routine visit at 21 weeks and 3 days gestation. - Patient has a history of chronic hypertension. - Current blood pressure is 130/79 mmHg. - She denies any current cramping. - Nausea has improved. - Patient reports nausea was primarily associated with feeling hot. - She has been drinking more water, which has helped. - No other -related symptoms or concerns reported. Care OB Visit Log OB Flowsheet Initial Weight: Not Recorded Date -?-?-?-?-?-?-?-?-?-?-?-?- EGA Weight BP Alb Glu CTX Pres Fundal ht FHR Mov Dilation Station Effacement Hx Notes Visit Note 03/12/25 -?-?-?-?-?-?-?-?-?-?-?-?- 10w 3d 106.141 kg 133/83 Fouzia Sloan, A1 at 10w3d (LMP 12/29/2024, QUINN: 10/05/2025), presents for initial visit. No CTX/LOF/VB. Reports dizziness when st anding, breast tenderness, and nausea without vomiting. History of miscarriage at 17w in 2022 due to trisomy 18. Current meds: labetalol 100 mg BID (ongoing since 2022). Ultrasound (03/12/2025): Single IUP, CRL consistent with 9w2d, FHR 173 bpm, anatomically normal appearance. BP: Elevated. Assessment & Plan: A1 at 10w3d, first visit. H istory of trisomy 18 and chronic hypertension. Order initial OB labs: blood type, infec tious panel Provide genetic screening form (trisomie s 13, 18, 21) Continue vitamins Continue labetalol 100 mg BID Recheck BP at next visit; monitor for pr e-eclampsia Educate on early symptoms and positional dizziness Follow-up in 10 days for lab review Refer to MFM in 2nd trimester due to zion or trisomy 18 Reviewed education and warning signs 03/26/25 -?-?-?-?-?-?-?-?-?-?-?-?- 12w 3d 106.651 kg 127/84 Fouzia Sloan, at 12w3d (QUINN 10/05/2025, LMP 12/29/2024), presents for routine follow-up. She completed her initial labs on 03/22/2025. No complaints today. Denies CTX/LOF/VB. Reports good movement for gestational age. Initial lab results: Hepatitis B & C: Negative RPR: Non-reactive Rubella: Immune HIV: Negative Gonorrhea & Chlamydia: Negative Blood type: A positive, antibody screen negative Maternity 21: Negative for trisomies, fe male fetus Cystic fibrosis screening: Negative Plan: Continue routine care Review anatomy ultrasound schedule betwe en 18?22 weeks Return in 4 weeks for next visi t Routine counseling provided 04/26/25 -?-?-?-?-?-?-?-?-?-?-?-?- 16w 6d 108.068 kg 132/84 at 16w6d, presents for routine visit. Nausea improving, feeling well overall. Chronic hypertension on labetalol, BP well controlled at 130s. US performed today: single IUP with variable presentation, FHT 141 bpm, posterior placenta, normal ANISHA and cervix, no anomalies seen. Plan: Continue labetalol. F/u in 4 weeks . Schedule anatomy scan in [place] at 20?24 weeks. Monitor BP closely. heart tones: 141 bpm. presentation: Variable. Laboratory, Imaging, and Diagnostic Test Results - Date: TueApr 26 2025 - Ultrasound: - Single amniotic sac (not twins) - presentation: Variable - heart rate: 141 bpm - Placenta: Posterior - Umbilical cord: Visualized - Amniotic fluid volume: Adequate - Cervix: Normal - Survey of intracranial, spinal, ab domen, 4-chamber heart: No abnormalities - All measurements appropriate for s econd trimester 05/28/25 -?-?-?-?-?-?-?-?-?-?-?-?- 21w 3d 108.976 kg 130/79 absent unknown 138 active , 21w3d No CTX/LOF/VB, early N/V resolved. FHR 1 38?140. BP stable (130/79). Anatomy scan scheduled tomorrow 1:30 PM. Minda n: Follow up in 4w, order GTT at 24w, start ASA (Rx to [facility]), provider to call Tuesday with US results. QUINN Calculator 2 Estimated Delivery Date Method Current WG Current Estimate 10/05/25 LMP (Certain) 21w 4d Exam General General Appearance: alert, in no apparent distress and healthy appearing Head Head exam: atraumatic Neck Neck exam: Present normal inspection and trachea midline Chest Chest inspection: Present normal inspection and symmetric chest wall rise External exam: Present normal external exam; Absent tenderness Neuro Neurological exam: Present oriented X3 Psych Psychiatric exam: Present normal affect and normal mood Office Procedures OB Clinic LOC & Office Proc's Nursing/Assessment Patient Status: Established Patient OB Clinic Nursing Assessment: Medication Reconciliation, Update PMH in EMR and Vital Signs OB Clinic Coordination of Care: Complex Care and Chronic Disease 1-5, Consent,records obtained, informed consent, Education Simp Pt/Fam and Staff clarify orders Special Needs: Heart tones Established Patient Charge Established Patient Point Assignment: 115 Established Patient Point Charge: EP Level 3 (80-115) Assessment & Plan Diagnosis / Problem List (1) Supervision of high risk , unspecified, second trimester: Status: Acute Plan Problem List - , 21 weeks and 3 days gestation - Chronic hypertension Assessment at 21 weeks and 3 days gestation presenting for routine visit. Patient has a history of chronic hypertension with current blood pressure 130/79. heart rate auscultated at 138-140 bpm, which is within normal range. Patient denies cramping and reports resolution of early nausea. Glucose tolerance test scheduled for diabetes screening. Anatomy scan ultrasound scheduled for tomorrow at 1:30 PM. Plan - Schedule follow-up visit in 4 weeks - Perform glucose tolerance test (diabetes screening) at 24 weeks or earlier - Start low-dose aspirin regimen (prescription to be sent to [facility] in [place]) - Await results of anatomy ultrasound scheduled for tomorrow at 1:30 PM - Provider to call patient on Tuesday with ultrasound report 1. Progress Reviewed gestational age, growth, and heart rate. Planned frequent visits (every 2 weeks until 36 weeks, then weekly). 2. Instructed patient to monitor movements and report decreases immediately. 3. Testing Counseled on routine third-trimester labs per guidelines. Discussed potential need for ultrasound or monitoring based on risk factors. 4. Preeclampsia Precaution Educated on preeclampsia signs: severe headache, vision changes, right upper quadrant pain, sudden swelling. Advised urgent reporting of symptoms and discussed blood pressure monitoring if high risk. 5. Labor Precautions Reviewed labor signs: regular contractions, pelvic pressure, back pain, bleeding, or fluid leakage. Instructed to seek immediate care for these symptoms. 6. Lifestyle and Delivery Preparation Reinforced vitamins, nutrition, and safe activity. Discussed plan, pain management, and . Advised on labor preparation (e.g., hospital bag) and expectations. 7. Psychosocial Support Assessed emotional well-being and offered resources for mental health or parenting support.
== END 2025-05-28 16:00 | disposition home or self-care (01) ==
LOC: HODSOBC 15:28
PROVIDERS: PCP Obstetrics & Gynecology; Referring Provider Obstetrics & Gynecology; Supervising Provider Obstetrics & Gynecology; Visit Provider Obstetrics & Gynecology
DX: O09.522 Supervision of elderly multigravida, second trimester (principal); O09.892 Supervision of other high risk pregnancies, second trimester; O10.912 Unspecified pre-existing hypertension complicating pregnancy, second trimester; Z3A.21 21 weeks gestation of pregnancy; Z79.899 Other long term (current) drug therapy
CPT/HCPCS: 99213; G0463

== ENCOUNTER 2025-07-02 15:33 | Outpatient (AMB) | payer MEDICAID, SELFPAY ==
[2025-07-02 15:44] VITALS: BP 130/82; PULSE 87; RESP 17; TEMP 36.4; O2SAT 98; BMI 46.3
--- NOTE | 2025-07-02 15:44 | OBCLNT_ITS ---
Vital Signs 07/02/25 15:44 Height 1.55 m Height Method Measured Weight 111.187 kg Weight Measurement Method Standing Scale BMI 46.3 BP 130/82 Blood Pressure Source Automatic Cuff Blood Pressure Location Right Upper Arm Position Sitting Respiration 17 Pulse 87 Pulse Source Monitor Temp 97.5 F Temp Source Temporal Artery Scan Pulse Oximetry (%) 98 Oxygen Delivery Method Room Air Allergies/Home Meds Allergies & Medications Allergies No Known Allergies Allergy (Verified 07/02/25 15:45) Medication Reconciliation vits no.124-ferrous fum 27 mg iron-folic acid 800 mcg tablet ( Vitamin) 1 tab PO QDAY 12/24/18 [History Confirmed 07/02/25] aspirin 81 mg tablet 81 mg PO QDAY 90 days #90 tabs 05/28/25 [Rx Confirmed 07/02/25] labetalol 100 mg tablet 100 mg PO BID 90 days #180 tabs 07/02/25 [Rx] Intake Visit Data Collection New Patient or Established: Established Patient (seen at [facility] within 3 years) Reason for Visit:: [facility] Consent obtained for Telemed Visit: No Seen by Clinical Staff ONLY (RN/MA): No Psychiatric Technician Required: No Do You Feel Safe at Home: Yes Authorities Contacted: N/A PCP or OBGYN visit in last 3 months: Yes Date of Last PCP or OBGYN visit: 05/28/25 Hx Now: Yes Are you currently on any form of Control: No Pain Present Currently: No Pain Scale Used: Garcia-Mai/Numerical Pain scale:: 0 Smoking Status Smoking Status: Never smoker Questionnaires Covid-19 Vaccine Questionnaire Has patient been vacinated for Covid-19 Have you been vacinated for Covid-19: No PHQ-9 PHQ-2 Over the last 2 weeks, how often have you been bothered by any of the following problems? 1. Little interest or pleasure in doing things: not at all PHQ-9 8. Moving or speaking so slowly that other people could have noticed? - Or the opposite - being so fidgety or restless that you have been moving around a lot more than usual: not at all Source: Developed by Drs. Hugo Vargas, Padmini Bazzi, Reji Restrepo and colleagues, with an educational micah from [employer]. 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 No CTX/LOF/VB. Reports dizziness when st anding, breast tenderness, and nausea without vomiting. History of miscarriage at 17w in 2022 due to trisomy 18. Current meds: labetalol 100 mg BID (ongoing since 2022). Ultrasound (03/12/2025): Single IUP, CRL consistent with 9w2d, FHR 173 bpm, anatomically normal appearance. BP: Elevated. Assessment & Plan: A1 at 10w3d, first visit. H istory of trisomy 18 and chronic hypertension. Order initial OB labs: blood type, infec tious panel Provide genetic screening form (trisomie s 13, 18, 21) Continue vitamins Continue labetalol 100 mg BID Recheck BP at next visit; monitor for pr e-eclampsia Educate on early symptoms and positional dizziness Follow-up in 10 days for lab review Refer to MFM in 2nd trimester due to izon or trisomy 18 Reviewed education and warning signs 03/26/25 -?-?-?-?-?-?-?-?-?-?-?--?- 12w 3d 106.651 kg 127/84 Fouzia Sloan, at 12w3d (QUINN 10/05/2025, LMP 12/29/2024), presents for routine follow-up. She compl eted her initial labs on 03/22/2025. No complaints today. Denies CTX/LOF/VB. Reports good movement for gestational age. Initial lab results: Hepatitis B & C: Negative RPR: Non-reactive Rubella: Immune HIV: Negative Gonorrhea & Chlamydia: Negative Blood type: A positive, antibody screen negative Maternity 21: Negative for trisomies, fe male fetus Cystic fibrosis screening: Negative Plan: Continue routine care Review anatomy ultrasound schedule betwe en 18?22 weeks Return in 4 weeks for next visi t Routine counseling provided 04/26/25 -?-?-?-?-?-?-?-?-?-?-?-?- 16w 6d 108.068 kg 132/84 at 16w6d, presents for routine visit. Nausea improving, feeling well overall. Chronic hypertension on labetalol, BP well controlled at 130s. US performed today: single IUP with variable presentation, FHT 141 bpm, posterior placenta, normal ANISHA and cervix, no anomalies seen. Plan: Continue labetalol. F/u in 4 weeks . Schedule anatomy scan in [place] at 20?24 weeks. Monitor BP closely. heart tones: 141 bpm. presentation: Variable. Laboratory, Imaging, and Diagnostic Test Results - Date: TueApr 26 2025 - Ultrasound: - Single amniotic sac (not twins) - presentation: Variable - heart rate: 141 bpm - Placenta: Posterior - Umbilical cord: Visualized - Amniotic fluid volume: Adequate - Cervix: Normal - Survey of intracranial, spinal, ab domen, 4-chamber heart: No abnormalities - All measurements appropriate for s econd trimester 05/28/25 -?-?-?-?-?-?-?-?-?-?-?-?- 21w 3d 108.976 kg 130/79 absent unknown 138 active , 21w3d No CTX/LOF/VB, early N/V resolved. FHR 1 38?140. BP stable (130/79). Anatomy scan scheduled tomorrow 1:30 PM. Minda n: Follow up in 4w, order GTT at 24w, start ASA (Rx to [facility]), provider to call Tuesday with US results. 07/02/25 -?-?-?-?-?-?-?-?-?-?-?-?- 26w 3d 111.187 kg 130/82 absent unknown 26 155 active - Glucose screening test result was elevated at 152 mg/dL. - Patient confirms she was fasting for the test. - No history of diabetes in prior pregna ncies. - Reports active movement. - Describes hard kicks and possible od d leg positions of the fetus. - Denies stomach pain or headaches. - Notes swollen feet. - Currently taking labetalol for blood p ressure management. - Taking 100 mg once daily, split into 50 mg doses. - Blood pressure reported to be in the 130s/80s. - Schedule 3-hour, 100-gram glucose tolerance test (GTT) (ICD-10 code: O99.810) - Increase Labetalol to 100 mg twice dat ly - Continue aspirin and vitamins - Patient to fast for at least 10 hours before GTT and stay well hydrated - Follow up in 4 weeks with GTT results and report from Dr. Larios - Prescription sent to [facility] for updated Labetalol dosage QUINN Calculator Estimated Delivery Date Method Current WG Current Estimate 10/05/25 LMP (Certain) 29w 3d Office Procedures OB Clinic LOC & Office Proc's Nursing/Assessment Patient Status: Established Patient OB Clinic Nursing Assessment: Medication Reconciliation, Update PMH in EMR and Vital Signs OB Clinic Coordination of Care: Complex Care and Chronic Disease 1-5, Education Complex Pt/Fam, Consent,records obtained, informed consent, Education Simp Pt/Fam, 4+ Authorizations needed, Lab and Imaging orders and Results/Orders obtained Special Needs: Heart tones Established Patient Charge Established Patient Point Assignment: 170 Established Patient Point Charge: EP Level 5 (160-above) Assessment & Plan Diagnosis / Problem List (1) Abnormal glucose affecting : Status: Acute (2) Chronic hypertension affecting : Status: Acute
== END 2025-07-02 16:01 | disposition home or self-care (01) ==
LOC: HODSOBC 15:33
PROVIDERS: PCP Obstetrics & Gynecology; Referring Provider Obstetrics & Gynecology; Supervising Provider Obstetrics & Gynecology; Visit Provider Obstetrics & Gynecology
DX: O09.892 Supervision of other high risk pregnancies, second trimester (principal); O99.810 Abnormal glucose complicating pregnancy; O10.912 Unspecified pre-existing hypertension complicating pregnancy, second trimester; O09.522 Supervision of elderly multigravida, second trimester; Z3A.26 26 weeks gestation of pregnancy; Z79.82 Long term (current) use of aspirin; Z79.899 Other long term (current) drug therapy
CPT/HCPCS: 99215; G0463

== ENCOUNTER 2025-08-19 11:17 | Outpatient (AMB) | payer MEDICAID, SELFPAY ==
--- NOTE | 2025-08-19 11:19 | OBCLNT_ITS ---
Vital Signs 08/19/25 11:23 Height 1.55 m Height Method Stated Weight 110.45 kg Weight Measurement Method Standing Scale BMI 45.9 BP 121/76 Blood Pressure Source Automatic Cuff Blood Pressure Location Left Upper Arm Position Sitting Respiration 14 Pulse 71 Pulse Source Monitor Temp 98.1 F Temp Source Oral Pulse Oximetry (%) 98 Oxygen Delivery Method Room Air Allergies/Home Meds Allergies & Medications Allergies No Known Allergies Allergy (Verified 09/27/25 09:38) Medication Reconciliation vits no.124-ferrous fum 27 mg iron-folic acid 800 mcg tablet ( Vitamin) 1 tab PO QDAY 12/24/18 [History Confirmed 09/27/25] aspirin 81 mg tablet 81 mg PO QDAY 90 days #90 tabs 05/28/25 [Rx Confirmed 09/27/25] labetalol 100 mg tablet 100 mg PO BID 90 days #180 tabs 07/02/25 [Rx Confirmed 09/27/25] folic acid 1 mg tablet 1 mg PO DAILY 09/27/25 [History Confirmed 09/27/25] Intake Visit Data Collection New Patient or Established: Established Patient (seen at [facility] within 3 years) Reason for Visit:: CARE Seen by Clinical Staff ONLY (RN/MA): No Emergency Preparedness Coordinator Required: No Do You Feel Safe at Home: Yes Authorities Contacted: N/A PCP or OBGYN visit in last 3 months: Yes Hx Now: Yes Are you currently on any form of Control: No Pain Present Currently: No Pain Scale Used: Garcia-Mai/Numerical Pain scale:: 0 Smoking Status Smoking Status: Never smoker Questionnaires Covid-19 Vaccine Questionnaire Has patient been vacinated for Covid-19 Have you been vacinated for Covid-19: Yes PHQ-9 PHQ-2 Over the last 2 weeks, how often have you been bothered by any of the following problems? 1. Little interest or pleasure in doing things: not at all 2. Feeling down, depressed, or hopeless: not at all Total score: 0 PHQ-9 3. Trouble falling or staying asleep, or sleeping too much: Not at all 4. Feeling tired or having little energy: Not at all 5. Poor appetite or overeating: Not at all 6. Feeling bad about yourself - or that you are a failure or have let yourself or your family down: Not at all 7. Trouble concentrating on things, such as reading the newspaper or watching television: Not at all 8. Moving or speaking so slowly that other people could have noticed? - Or the opposite - being so fidgety or restless that you have been moving around a lot more than usual: not at all 9. Thoughts that you would be better off or of hurting yourself in some way: Not at all Total score: 0 Source: Developed by Drs. Hugo Vargas, Padmini Bazzi, Reji Restrepo and colleagues, with an educational micah from [employer]. 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 No CTX/LOF/VB. Reports dizziness when st anding, breast tenderness, and nausea without vomiting. History of miscarriage at 17w in 2022 due to trisomy 18. Curr ent meds: labetalol 100 mg BID (ongoing since 2022). Ultrasound (03/12/2025): Single IUP, CRL consistent with 9w2d, FHR 173 bpm, anatomically normal appearance. BP: Elevated. Assessment & Plan: A1 at 10w3d, first visit. H istory of trisomy 18 and chronic hypertension. Order initial OB labs: blood type, infec tious panel Provide genetic screening form (trisomie s 13, 18, 21) Continue vitamins Continue labetalol 100 mg BID Recheck BP at next visit; monitor for pr e-eclampsia Educate on early symptoms and positional dizziness Follow-up in 10 days for lab review Refer to MFM in 2nd trimester due to zion or trisomy 18 Reviewed education and warning signs 03/26/25 -?-?-?-?-?-?-?-?-?-?-?-?- 12w 3d 106.651 kg 127/84 Fouzia Sloan, at 12w3d (QUINN 10/05/2025, LMP 12/29/2024), presents for routine follow-up. She completed her initial labs on 03/22/2025. No complaints today. Denies CTX/LOF/VB. Reports good movement for gestational age. Initial lab results: Hepatitis B & C: Negative RPR: Non-reactive Rubella: Immune HIV: Negative Gonorrhea & Chlamydia: Negative Blood type: A positive, antibody screen negative Maternity 21: Negative for trisomies, fe male fetus Cystic fibrosis screening: Negative Plan: Continue routine care Review anatomy ultrasound schedule betwe en 18?22 weeks Return in 4 weeks for next visi t Routine counseling provided 04/26/25 -?-?-?-?-?-?-?-?-?-?-?-?- 16w 6d 108.068 kg 132/84 at 16w6d, presents for routine visit. Nausea improving, feeling well overall. Chronic hypertension on labetalol, BP well controlled at 130s. US performed today: single IUP with variable presentation, FHT 141 bpm, posterior placenta, normal ANISHA and cervix, no anomalies seen. Plan: Continue labetalol. F/u in 4 weeks . Schedule anatomy scan in [place] at 20?24 weeks. Monitor BP closely. heart tones: 141 bpm. presentation: Variable. Laboratory, Imaging, and Diagnostic Test Results - Date: TueApr 26 2025 - Ultrasound: - Single amniotic sac (not twins) - presentation: Variable - heart rate: 141 bpm - Placenta: Posterior - Umbilical cord: Visualized - Amniotic fluid volume: Adequate - Cervix: Normal - Survey of intracranial, spinal, ab domen, 4-chamber heart: No abnormalities - All measurements appropriate for s econd trimester 05/28/25 -?-?-?-?-?-?-?-?-?-?-?-?- 21w 3d 108.976 kg 130/79 absent unknown 138 active , 21w3d No CTX/LOF/VB, early N/V resolved. FHR 1 38?140. BP stable (130/79). Anatomy scan scheduled tomorrow 1:30 PM. Plan : Follow up in 4w, order GTT at 24w, start ASA (Rx to [facility]), provider to call Tuesday with US results. 07/02/25 -?-?-?-?-?-?-?-?-?-?-?-?- 26w 3d 111.187 kg 130/82 absent unknown 26 155 active - Glucose screening t est result was elevated at 152 mg/dL. - Patient confirms she was fasting for the test. - No history of diabetes in prior pregna ncies. - Reports active movement. - Describes hard kicks and possible od d leg positions of the fetus. - Denies stomach pain or headaches. - Notes swollen feet. - Currently taking labetalol for blood p ressure management. - Taking 100 mg once daily, split into 50 mg doses. - Blood pressure reported to be in the 130s/80s. - Schedule 3-hour, 100-gram glucose tolerance test (GTT) (ICD-10 code: O99.810) - Increase Labetalol to 100 mg twice dat ly - Continue aspirin and vitamins - Patient to fast for at least 10 hours before GTT and stay well hydrated - Follow up in 4 weeks with GTT results and report from Dr. Larios - Prescription sent to [facility] pharmacy for updated Labetalol dosage 08/19/25 -?-?-?-?-?-?-?-?-?-?-?-?- 33w 2d 110.45 kg 121/76 absent unknown 34 145 active - Her last visit was 4 weeks ago. - She had an abnormal one-hour glucose t est result of 152, but subsequent 3-hour glucose test was negative ruling out gestational diabetes. - During the 3-hour glucose test, she fe lt woozy due to blood sugar fluctuations. - She saw Dr. Vazquez last Tuesday w ho confirmed everything is good and discharged her. - She denies diabetes. - Fol low up appointment in 2 weeks, then weekly thereafter - Group B streptococcus culture swab at 36 weeks - Membrane sweeping at 39 weeks to help induce labor - Continue current management for gestat ional hypertension with labetalol - Monitor growth and maternal weig ht gain 09/05/25 -?-?-?-?-?-?-?-?-?-?-?-?- 35w 5d 111.811 kg 116/72 absent unknown 36 145 active - She is currently taking labetalol for gestational hypertension and reports adherence to the medication. - She has gestational diabetes managed w [facility] diet control and reports no longer checking blood sugars. - She reports occasional headaches but d enies significant problems or concerning symptoms. - The patient expresses feeling unprepar ed for this , stating she feels like this is her first child and doesn't know what she's doing. - She denies having received the Tdap vaccine yet during this pregn kraig. - Continue labetalol for gestational hypertension - Administer Tdap vaccine today - Obtain flu and RSV vaccines at pharmac y ([facility] or [facility]) - Schedule ultrasound for weight m easurement on labor and delivery unit (provider will call in order) - Weekly visits from now on - Next visit: ultrasound for weigh t - Following visit: check for cervical di lation - [place] at [facility] labor and deliver y department 09/12/25 -?-?-?-?-?-?-?-?-?--?-?-?- 36w 5d 111.584 kg 120/70 absent unknown 38 155 active - She has gestational hypertension currently managed with labetalol with blood pressure of 120/70. - She has gestational diabetes mellitus managed with diet control. - She reports trying to keep really acti ve during and notes feeling exhausted every day but hopes the activity is helping. - She describes her typical labor patter n from previous pregnancies: - With Haile, labor started around 4 A M, 5 days after due date - With Jose Luis, labor started around 4 AM, 3 days after due date - Contractions typically strengthen by 7 AM - Required artificial rupture of membr anes with each previous delivery - Labor progresses rapidly once membranes are ruptured - Follow up appointment scheduled for the following week - Patient to go to 4th floor when going to the hospital - Provider will call hospital and give o rders - Blood pressure to be rechecked when rupali burt goes to hospital QUINN Calculator Estimated Delivery Date Method Current WG Current Estimate 10/05/25 LMP (Certain) 39w 0d Notes Visit Date: 08/19/25 Last Updated by: Artemio Conroy MD - One-hour glucose test: 152 mg/dL (abnormal) - Three-hour glucose test: Negative for gestational diabetes - Ultrasound with MFM (08/14/2025): EFW 2286 grams (5 pounds 1 ounce), 79th percentile, abdomen measuring large, amniotic fluid within normal limits, anatomy survey limited, cephalic presentation, BPP 06/21 Office Procedures OBC Clinic LOC & Office Proc's Nursing/Assessment Patient Status: Established Patient OB Clinic Nursing Assessment: Medication Reconciliation, Update PMH in EMR and Vital Signs OB Clinic Coordination of Care: AMA, Complex Care and Chronic Disease 1-5, Education Complex Pt/Fam, Consent,records obtained, informed consent, 1 Ins Authorization, Lab and Imaging orders, Results/Orders obtained and Staff clarify orders Special Needs: Heart tones Established Patient Charge Established Patient Point Assignment: 175 Established Patient Point Charge: EP Level 5 (160-above) Assessment & Plan Diagnosis / Problem List (1) Gestational diabetes: Status: Acute (2) Supervision of high risk , unspecified, third trimester: Status: Acute (3) Chronic hypertension affecting : Status: Acute (4) Abnormal glucose affecting : Status: Acute
[2025-08-19 11:23] VITALS: BP 121/76; PULSE 71; RESP 14; TEMP 36.7; O2SAT 98; BMI 45.9
== END 2025-08-19 11:36 | disposition home or self-care (01) ==
PROVIDERS: Supervising Provider Obstetrics & Gynecology; Visit Provider Obstetrics & Gynecology
DX: O09.893 Supervision of other high risk pregnancies, third trimester (principal); O10.913 Unspecified pre-existing hypertension complicating pregnancy, third trimester; O99.810 Abnormal glucose complicating pregnancy; O09.523 Supervision of elderly multigravida, third trimester; Z3A.33 33 weeks gestation of pregnancy; Z79.899 Other long term (current) drug therapy
CPT/HCPCS: 99215; G0463

== ENCOUNTER 2025-09-05 14:39 | Outpatient (AMB) | payer MEDICAID, SELFPAY ==
[2025-09-05 14:51] VITALS: BP 116/72; PULSE 82; RESP 16; TEMP 36.7; O2SAT 98; BMI 46.5
--- NOTE | 2025-09-05 14:51 | OBCLNT_ITS ---
Vital Signs 09/05/25 14:51 Height 1.55 m Height Method Stated Weight 111.811 kg Weight Measurement Method Standing Scale BMI 46.5 BP 116/72 Blood Pressure Source Automatic Cuff Blood Pressure Location Left Upper Arm Position Sitting Respiration 16 Pulse 82 Pulse Source Monitor Temp 98.1 F Temp Source Oral Pulse Oximetry (%) 98 Oxygen Delivery Method Room Air Allergies/Home Meds Allergies & Medications Allergies No Known Allergies Allergy (Verified 09/05/25 14:51) Medication Reconciliation vits no.124-ferrous fum 27 mg iron-folic acid 800 mcg tablet ( Vitamin) 1 tab PO QDAY 12/24/18 [History Confirmed 09/05/25] aspirin 81 mg tablet 81 mg PO QDAY 90 days #90 tabs 05/28/25 [Rx Confirmed 09/05/25] labetalol 100 mg tablet 100 mg PO BID 90 days #180 tabs 07/02/25 [Rx Confirmed 09/05/25] Intake Visit Data Collection New Patient or Established: Established Patient (seen at [facility] within 3 years) Reason for Visit:: CARE/ GBS DUE Seen by Clinical Staff ONLY (RN/MA): No Installment Account Checker Required: No Do You Feel Safe at Home: Yes Authorities Contacted: N/A PCP or OBGYN visit in last 3 months: Yes Hx Now: Yes Are you currently on any form of Control: No Pain Present Currently: No Pain Scale Used: Garcia-Mai/Numerical Pain scale:: 0 Smoking Status Smoking Status: Never smoker Immunizations Flu Vaccine in the Last 12 Months: No Flu Vaccine Exclusion Criteria: No Exclusion Criteria Questionnaires Covid-19 Vaccine Questionnaire Has patient been vacinated for Covid-19 Have you been vacinated for Covid-19: Yes PHQ-9 PHQ-2 Over the last 2 weeks, how often have you been bothered by any of the following problems? 1. Little interest or pleasure in doing things: not at all 2. Feeling down, depressed, or hopeless: not at all Total score: 0 PHQ-9 3. Trouble falling or staying asleep, or sleeping too much: Not at all 4. Feeling tired or having little energy: Not at all 5. Poor appetite or overeating: Not at all 6. Feeling bad about yourself - or that you are a failure or have let yourself or your family down: Not at all 7. Trouble concentrating on things, such as reading the newspaper or watching television: Not at all 8. Moving or speaking so slowly that other people could have noticed? - Or the opposite - being so fidgety or restless that you have been moving around a lot more than usual: not at all 9. Thoughts that you would be better off or of hurting yourself in some way: Not at all Total score: 0 Source: Developed by Drs. Hugo Vargas, Padmini Bazzi, Reji Restrepo and colleagues, with an educational micah from [employer]. 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 No CTX/LOF/VB. Reports dizziness when st anding, breast tenderness, and nausea without vomiting. History of miscarriage at 17w in 2022 due to trisomy 18. Current meds: labetalol 100 mg BID (ongoing since 2022). Ultrasound (03/12/2025): Single IUP, CRL consistent with 9w2d, FHR 173 bpm, anatomically normal appearance. BP: Elevated. Assessment & Plan: A1 at 10w3d, first visit. H istory of trisomy 18 and chronic hypertension. Order initial OB labs: blood type, infec tious panel Provide genetic screening form (trisomie s 13, 18, 21) Continue vitamins Continue labetalol 100 mg BID Recheck BP at next visit; monitor for pr e-eclampsia Educate on early symptoms and positional dizziness Follow-up in 10 days for lab review Refer to MFM in 2nd trimester due to zion or trisomy 18 Reviewed education and warning signs 03/26/25 -?-?-?-?-?-?-?-?-?-?-?-?- 12w 3d 106.651 kg 127/84 Fouzia Sloan, at 12w3d (QUINN 10/05/2025, LMP 12/29/2024), presents for routine follow-up. She completed her initial labs on 03/22/2025. No complaints today. Denies CTX/LOF/VB. Reports good movement for gestational age. Initial lab results: Hepatitis B & C: Negative RPR: Non-reactive Rubella: Immune HIV: Negative Gonorrhea & Chlamydia: Negative Blood type: A positive, antibody screen negative Maternity 21: Negative for trisomies, fe male fetus Cystic fibrosis screening: Negative Plan: Continue routine care Review anatomy ultrasound schedule betwe en 18?22 weeks Return in 4 weeks for next visi t Routine counseling provided 04/26/25 -?-?-?-?-?-?-?-?-?-?-?-?- 16w 6d 108.068 kg 132/84 at 16w6d, presents for routine visit. Nausea improving, feeling well overall. Chronic hypertension on labetalol, BP well controlled at 130s. US performed today: single IUP with variable presentation, FHT 141 bpm, posterior placenta, normal ANISHA and cervix, no anomalies seen. Plan: Continue labetalol. F/u in 4 weeks . Schedule anatomy scan in [place] at 20?24 weeks. Monitor BP closely. heart tones: 141 bpm. presentation: Variable. Laboratory, Imaging, and Diagnostic Test Results - Date: TueApr 26 2025 - Ultrasound: - Single amniotic sac (not twins) - presentation: Variable - heart rate: 141 bpm - Placenta: Posterior - Umbilical cord: Visualized - Amniotic fluid volume: Adequate - Cervix: Normal - Survey of intracranial, spinal, ab domen, 4-chamber heart: No abnormalities - All measurements appropriate for s econd trimester 05/28/25 -?-?-?-?-?--?-?-?-?-?-?-?- 21w 3d 108.976 kg 130/79 absent unknown 138 active , 21w3d No CTX/LOF/VB, early N/V resolved. FHR 1 38?140. BP stable (130/79). Anatomy scan scheduled tomorrow 1:30 PM. Plan : Follow up in 4w, order GTT at 24w, start ASA (Rx to [facility]), provider to call Tuesday with US results. 07/02/25 -?-?-?-?-?-?-?-?-?-?-?-?- 26w 3d 111.187 kg 130/82 09/05/25 -?-?-?-?-?-?-?-?-?-?-?-?- 35w 5d 111.811 kg 116/72 QUINN Calculator Estimated Delivery Date Method Current WG Current Estimate 10/05/25 LMP (Certain) 36w 3d Office Procedures OBC Clinic LOC & Office Proc's Nursing/Assessment Patient Status: Established Patient OB Clinic Nursing Assessment: Medication Reconciliation, Update PMH in EMR and Vital Signs OB Clinic Coordination of Care: AMA, Complex Care and Chronic Disease 1-5, Consent,records obtained, informed consent, Education Simp Pt/Fam, 1 Ins Authorization, Lab and Imaging orders, Results/Orders obtained and Staff clarify orders Special Needs: Heart tones Miscellaneous Interventions: Culture Specimen Collection Established Patient Charge Established Patient Point Assignment: 185 Established Patient Point Charge: EP Level 5 (160-above) Assessment & Plan Diagnosis / Problem List (1) Chronic hypertension affecting : Status: Acute (2) Abnormal glucose affecting : Status: Acute (3) Supervision of high risk , unspecified, third trimester: Status: Acute (4) Gestational diabetes: Status: Acute Plan Problem List - Gestational hypertension - Gestational diabetes mellitus Assessment Gestational hypertension currently managed with labetalol with patient reporting compliance and blood pressure reading of 139 mmHg, which is within normal range. Gestational diabetes mellitus controlled with diet modification. Patient is 7, para 4 at 35 weeks and 5 days gestation with active movement and normal heart rate of 139 bpm. Group B Streptococcus screening performed as routine care at approximately 36 weeks gestation. Patient has not received Tdap vaccination during this . Plan - Continue labetalol for gestational hypertension - Administer Tdap vaccine today - Obtain flu and RSV vaccines at pharmacy ([facility] or [facility]) - Schedule ultrasound for weight measurement on labor and delivery unit (provider will call in order) - Weekly visits from now on - Next visit: ultrasound for weight - Following visit: check for cervical dilation - [place] at hospital labor and delivery department 1. Progress Reviewed gestational age (35 weeks and 5 days), growth, and heart rate (139 bpm, normal). Planned frequent visits (weekly from now on). 2. Instructed patient to monitor movements and report decreases immediately. 3. Testing Counseled on routine third-trimester labs per guidelines. Discussed potential need for ultrasound (weight measurement on baby scheduled for labor and delivery) or monitoring based on risk factors. 4. Preeclampsia Precaution Educated on preeclampsia signs: severe headache, vision changes, right upper quadrant pain, sudden swelling. Advised urgent reporting of symptoms and discussed blood pressure monitoring (patient on labetalol for gestational hypertension). 5. Labor Precautions Reviewed labor signs: regular contractions, pelvic pressure, back pain, bleeding, or fluid leakage. Instructed to seek immediate care for these symptoms (advised that labor could occur anytime after 36-37 weeks). 6. Lifestyle and Delivery Preparation Reinforced vitamins, nutrition, and safe activity. Discussed plan, pain management, and . Advised on labor preparation (hospital bag preparation mentioned) and expectations. 7. Psychosocial Support Assessed emotional well-being (patient expressed feeling unprepared despite bein g 7 para 4) and offered resources for mental health or parenting support.
== END 2025-09-05 15:01 | disposition home or self-care (01) ==
LOC: HODSOBC 14:39
PROVIDERS: Supervising Provider Obstetrics & Gynecology; Visit Provider Obstetrics & Gynecology
DX: O09.893 Supervision of other high risk pregnancies, third trimester (principal); O10.913 Unspecified pre-existing hypertension complicating pregnancy, third trimester; O24.410 Gestational diabetes mellitus in pregnancy, diet controlled; O09.523 Supervision of elderly multigravida, third trimester; Z3A.35 35 weeks gestation of pregnancy; Z79.899 Other long term (current) drug therapy
CPT/HCPCS: 99215; G0463

== ENCOUNTER 2025-09-12 15:37 | Outpatient (AMB) | payer MEDICAID, SELFPAY ==
[2025-09-12 15:45] VITALS: BP 120/70; PULSE 72; RESP 14; TEMP 36.5; O2SAT 98; BMI 46.4
--- NOTE | 2025-09-12 15:45 | OBCLNT_ITS ---
Vital Signs 09/12/25 15:45 Height 1.55 m Height Method Stated Weight 111.584 kg Weight Measurement Method Standing Scale BMI 46.4 BP 120/70 Blood Pressure Source Automatic Cuff Blood Pressure Location Left Upper Arm Position Sitting Respiration 14 Pulse 72 Pulse Source Monitor Temp 97.7 F Temp Source Oral Pulse Oximetry (%) 98 Oxygen Delivery Method Room Air Allergies/Home Meds Allergies & Medications Allergies No Known Allergies Allergy (Verified 09/12/25 15:52) Medication Reconciliation vits no.124-ferrous fum 27 mg iron-folic acid 800 mcg tablet ( Vitamin) 1 tab PO QDAY 12/24/18 [History Confirmed 09/12/25] aspirin 81 mg tablet 81 mg PO QDAY 90 days #90 tabs 05/28/25 [Rx Confirmed 09/12/25] labetalol 100 mg tablet 100 mg PO BID 90 days #180 tabs 07/02/25 [Rx Confirmed 09/12/25] Intake Visit Data Collection New Patient or Established: Established Patient (seen at [facility] within 3 years) Reason for Visit:: CARE/ GBS RESULTS Seen by Clinical Staff ONLY (RN/MA): No Cold Mill Supervisor Required: No Do You Feel Safe at Home: Yes Authorities Contacted: N/A PCP or OBGYN visit in last 3 months: Yes Hx Now: Yes Are you currently on any form of Control: No Pain Present Currently: No Pain Scale Used: Garcia-Mai/Numerical Pain scale:: 0 Smoking Status Smoking Status: Never smoker Immunizations Flu Vaccine in the Last 12 Months: Yes Flu Vaccine Exclusion Criteria: Already Received Questionnaires Covid-19 Vaccine Questionnaire Has patient been vacinated for Covid-19 Have you been vacinated for Covid-19: Yes PHQ-9 PHQ-2 Over the last 2 weeks, how often have you been bothered by any of the following problems? 1. Little interest or pleasure in doing things: not at all 2. Feeling down, depressed, or hopeless: not at all Total score: 0 PHQ-9 3. Trouble falling or staying asleep, or sleeping too much: Not at all 4. Feeling tired or having little energy: Not at all 5. Poor appetite or overeating: Not at all 6. Feeling bad about yourself - or that you are a failure or have let yourself or your family down: Not at all 7. Trouble concentrating on things, such as reading the newspaper or watching television: Not at all 8. Moving or speaking so slowly that other people could have noticed? - Or the opposite - being so fidgety or restless that you have been moving around a lot more than usual: not at all 9. Thoughts that you would be better off or of hurting yourself in some way: Not at all Total score: 0 Source: Developed by Drs. Hugo Vargas, Padmini Bazzi, Reji Restrepo and colleagues, with an educational micah from [email or web address]. 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 No CTX/LOF/VB. Reports dizziness when st anding, breast tenderness, and nausea without vomiting. History of miscarriage at 17w in 2022 due to trisomy 18. Current meds: labetalol 100 mg BID (ongoing since 2022). Ultrasound (03/12/2025): Single IUP, CRL consistent with 9w2d, FHR 173 bpm, anatomically normal appearance. BP: Elevated. Assessment & Plan: A1 at 10w3d, first visit. H istory of trisomy 18 and chronic hypertension. Order initial OB labs: blood type, infec tious panel Provide genetic screening form (trisomie s 13, 18, 21) Continue vitamins Continue labetalol 100 mg BID Recheck BP at next visit; monitor for pr e-eclampsia Educate on early symptoms and positional dizziness Follow-up in 10 days for lab review Refer to MFM in 2nd trimester due to zion or trisomy 18 Reviewed education and warning signs 03/26/25 -?-?-?-?-?-?-?-?-?-?-?-?- 12w 3d 106.651 kg 127/84 Fouzia Sloan, at 12w3d (QUINN 10/05/2025, LMP 12/29/2024), presents for routine follow-up. She completed her initial labs on 03/22/2025. No complaints today. Denies CTX/LOF/VB. Reports good movement for gestational age. Initial lab results: Hepatitis B & C: Negative RPR: Non-reactive Rubella: Immune HIV: Negative Gonorrhea & Chlamydia: Negative Blood type: A positive, antibody screen negative Maternity 21: Negative for trisomies, fe male fetus Cystic fibrosis screening: Negative Plan: Continue routine care Review anatomy ultrasound schedule betwe en 18?22 weeks Return in 4 weeks for next visi t Routine counseling provided 04/26/25 -?-?-?-?-?-?-?-?-?-?-?-?- 16w 6d 108.068 kg 132/84 at 16w6d, presents for routine visit. Nausea improving, feeling well overall. Chronic hypertension on labetalol, BP well controlled at 130s. US performed today: single IUP with variable presentation, FHT 141 bpm, posterior placenta, normal ANISHA and cervix, no anomalies seen. Plan: Continue labetalol. F/u in 4 weeks . Schedule anatomy scan in [place] at 20?24 weeks. Monitor BP closely. heart tones: 141 bpm. presentation: Variable. Laboratory, Imaging, and Diagnostic Test Results - Date: TueApr 26 2025 - Ultrasound: - Single amniotic sac (not twins) - presentation: Variable - heart rate: 141 bpm - Placenta: Posterior - Umbilical cord: Visualized - Amniotic fluid volume: Adequate - Cervix: Normal - Survey of intracranial, spinal, ab domen, 4-chamber heart: No abnormalities - All measurements appropriate for s econd trimester 05/28/25 -?-?-?-?-?--?-?-?-?-?-?-?- 21w 3d 108.976 kg 130/79 absent unknown 138 active , 21w3d No CTX/LOF/VB, early N/V resolved. FHR 1 38?140. BP stable (130/79). Anatomy scan scheduled tomorrow 1:30 PM. Plan : Follow up in 4w, order GTT at 24w, start ASA (Rx to Sarah), provider to call Tuesday with US results. 07/02/25 -?-?-?-?-?-?-?-?-?-?-?-?- 26w 3d 111.187 kg 130/82 absent unknown 26 155 active - Glucose screening test result was elevated at 152 mg/dL. - Patient confirms she was fasting for the test. - No history of diabetes in prior pregna ncies. - Reports active movement. - Describes hard kicks and possible od d leg positions of the fetus. - Denies stomach pain or headaches. - Notes swollen feet. - Currently taking labetalol for blood p ressure management. - Taking 100 mg once daily, split into 50 mg doses. - Blood pressure reported to be in the 130s/80s. - Schedule 3-hour, 100-gram glucose tolerance test (GTT) (ICD-10 code: O99.810) - Increase Labetalol to 100 mg twice dat ly - Continue aspirin and vitamins - Patient to fast for at least 10 hours before GTT and stay well hydrated - Follow up in 4 weeks with GTT results and report from Dr. Larios - Prescription sent to [facility] pharmacy for updated Labetalol dosage 09/05/25 -?-?-?-?-?--?-?-?-?-?-?-?- 35w 5d 111.811 kg 116/72 absent unknown 36 145 active - She is currently taking labetalol for gestational hypertension and reports adherence to the medication. - She has gestational diabetes managed w ith diet control and reports no longer checking blood sugars. - She reports occasional headaches but d enies significant problems or concerning symptoms. - The patient expresses feeling unprepar ed for this , stating she feels like this is her first child and doesn't know what she's doing. - She denies having received the Tdap vaccine yet during this pregn kraig. - Continue labetalol for gestational hypertension - Administer Tdap vaccine today - Obtain flu and RSV vaccines at pharmac y ([facility] or [facility]) - Schedule ultrasound for weight m easurement on labor and delivery unit (provider will call in order) - Weekly visits from now on - Next visit: ultrasound for weigh t - Following visit: check for cervical di lation - [place] at hospital labor and deliver y department 09/12/25 -?-?-?-?-?-?-?-?-?-?-?-?- 36w 5d 111.584 kg 120/70 absent unknown 38 155 active - She has gestational hypertension currently managed with labetalol with blood pressure of 120/70. - She has gestational diabetes mellitus managed with diet control. - She reports trying to keep really acti ve during and notes feeling exhausted every day but hopes the activity is helping. - She describes her typical labor patter n from previous pregnancies: - With Haile, labor started around 4 A M, 5 days after due date - With Jose Luis, labor started around 4 AM, 3 days after due date - Contractions typically strengthen by 7 AM - Required artificial rupture of membr anes with each previous delivery - Labor progresses rapidly once membranes are ruptured - Follow up appointment scheduled for the following week - Patient to go to 4th floor when going to the hospital - Provider will call hospital and give o rders - Blood pressure to be rechecked when rupali burt goes to hospital QUINN Calculator Estimated Delivery Date Method Current WG Current Estimate 10/05/25 LMP (Certain) 36w 5d Office Procedures [facility] LOC & Office Proc's Nursing/Assessment Patient Status: Established Patient OB Clinic Nursing Assessment: Medication Reconciliation, Update PMH in EMR and Vital Signs OB Clinic Coordination of Care: Complex Care and Chronic Disease 1-5, Consent,records obtained, informed consent, Education Simp Pt/Fam, 1 Ins Authorization, Lab and Imaging orders, Results/Orders obtained and Staff clarify orders Special Needs: Heart tones Established Patient Charge Established Patient Point Assignment: 150 Established Patient Point Charge: EP Level 4 (120-155) Assessment & Plan Diagnosis / Problem List (1) Gestational diabetes: Status: Acute (2) Supervision of high risk , unspecified, third trimester: Status: Acute (3) Chronic hypertension affecting : Status: Acute Plan Problem List - Gestational hypertension - Gestational diabetes mellitus Assessment 36 weeks and 5 days gestation in a patient with gestational hypertension currently managed on labetalol with blood pressure of 120/70, and gestational diabetes mellitus controlled with diet. Estimated weight was at the 79th percentile at 33 weeks gestation. Patient reports a consistent labor pattern in previous pregnancies, typically beginning around 4 AM several days past due date, with rapid progression once membranes are artificially ruptured. Plan - Follow up appointment scheduled for the following week - Patient to go to 4th floor when going to the hospital - Provider will call hospital and give orders - Blood pressure to be rechecked when patient goes to hospital 1. Progress Reviewed gestational age at 36 weeks and 5 days, growth with EFW at 79th percentile at 33 weeks, and heart rate. Planned frequent visits (every 2 weeks until 36 weeks, then weekly). 2. Instructed patient to monitor movements and report decreases immediately. 3. Testing Counseled on routine third-trimester labs per guidelines. Discussed potential need for ultrasound or monitoring based on risk f actors. 4. Preeclampsia Precaution Educated on preeclampsia signs: severe headache, vision changes, right upper quadrant pain, sudden swelling. Advised urgent reporting of symptoms and discussed blood pressure monitoring if high risk. 5. Labor Precautions Reviewed labor signs: regular contractions, pelvic pressure, back pain, bleeding, or fluid leakage. Instructed to seek immediate care for these symptoms. 6. Lifestyle and Delivery Preparation Reinforced vitamins, nutrition, and safe activity. Discussed plan, pain management, and . Advised on labor preparation (e.g., hospital bag) and expectations. 7. Psychosocial Support Assessed emotional well-being and offered resources for mental health or parenting support.
== END 2025-09-12 16:24 | disposition home or self-care (01) ==
LOC: HODSOBC 15:37
PROVIDERS: Supervising Provider Obstetrics & Gynecology; Visit Provider Obstetrics & Gynecology
DX: O09.893 Supervision of other high risk pregnancies, third trimester (principal); O24.410 Gestational diabetes mellitus in pregnancy, diet controlled; O10.913 Unspecified pre-existing hypertension complicating pregnancy, third trimester; O09.523 Supervision of elderly multigravida, third trimester; Z3A.36 36 weeks gestation of pregnancy; Z79.899 Other long term (current) drug therapy
CPT/HCPCS: 99214; G0463

== ENCOUNTER 2025-09-27 09:15 | Outpatient (CLI) | payer MEDICAID, SELFPAY ==
[2025-09-27 09:20] VITALS: BP 109/57; PULSE 69; RESP 17; RESP 99; TEMP 36.7; BMI 46.6
--- NOTE | 2025-09-27 09:23 | XR_ITS ---
Examination: Complete OB ultrasound greater than 14 weeks Date and time of exam: September 27, 2025, 0947 hours INDICATIONS: Size dates discrepancy Findings: Viable intrauterine single fetus with single amniotic sac presentation cephalic spine maternal right Cardiac motion 130 bpm Placenta fundal grade 3 Medical cord insertion 3 vessel seen Amniotic fluid index 12.1 cm Cervix 3.0 cm Ovaries obscured by bowel gas. Composite estimated gestational age based on BPD, head circumference, abdominal circumference, femur length is 38 weeks 6 days Estimated weight 3620 g. Survey of intracranial anatomy, spinal anatomy, abdominal anatomy, four-chamber heart performed with no abnormalities identified. Impression: Viable intrauterine gestation cephalic presentation Estimated gestational age 38 weeks 6 days Estimated weight 3620 g.
[2025-09-27 09:25] VITALS: BP 109/57; PULSE 68; PULSE 69; O2SAT 98
[2025-09-27 09:30] VITALS: PULSE 70; O2SAT 99
[2025-09-27 09:35] VITALS: PULSE 101; O2SAT 99
[2025-09-27 09:40] VITALS: PULSE 71; O2SAT 97
== END 2025-09-27 10:24 | disposition home or self-care (01) ==
LOC: S4S1 09:16 → S4SX 09:16
PROVIDERS: Referring Provider Obstetrics & Gynecology; Visit Provider Obstetrics & Gynecology
DX: Z34.83 Encounter for supervision of other normal pregnancy, third trimester (principal); Z36.9 Encounter for antenatal screening, unspecified; Z3A.38 38 weeks gestation of pregnancy
CPT/HCPCS: 59025; 76805

== ENCOUNTER 2025-10-07 12:51 | Inpatient (IN) | payer MEDICAID, SELFPAY ==
--- NOTE | 2025-10-06 16:46 | PC.NURSE ---
Phone call made to patient to notify of NST/BPP needed per MD due to scheduled IOL for CHAPIS GALVEZ. Patient refused to come in today, states she does not want to be induced and has been walking to come in in active labor instead. Patient states she will come in tomorrow for monitoring if unable to come in for IOL. Labor precautions and kick counts discussed, instructed to come to triage with signs of active labor, leaking, bleeding or decreased FM, patient verbalized understanding, will call tomorrow am.
[2025-10-07] VITALS (13 sets, daily range): BP systolic 120–142; BP diastolic 57–69; PULSE 62–86; RESP 18–20; TEMP 36.7; BMI 46.5
--- NOTE | 2025-10-07 09:40 | PD.EVENT ---
Documentation for date of: 10/07/25 Event Note Event Note: The patient is a 40-year-old -0-2-4 at 40 weeks 2 days who was scheduled for induction of labor yesterday and did not come in. She was called today and offered another spot for an induction of labor and patient states she is not sure she is coming in . She is high risk due to the fact she is 40 years old, she is post dates by 2 days, and her BMI is 46. She is also a chronic hypertensive. She had an elevated 1 hour but a normal 3-hour glucose. She did discuss her induction spot with our charge nurse Jose Ramon, and we encouraged her strongly to come in. She states she might want to wait untill Dr. Conroy is on-call. Her last NST /BPP and ultrasound was 10 days ago on 09/27/2025. We encouraged her to come in at least for an NST and BPP to ensure the baby is healthy. We are unsure whether the patient will follow recommendations. She states she might come in by noon .
[2025-10-07] MEDS: RINGERS LACTATED 1000 ML 1,000 ML 100 ML IV ×2 (14:05→18:55)
--- NOTE | 2025-10-07 14:25 | PD.LDHP ---
Documentation for date of: 10/07/25 OB Labor/Induct. HPI History of Present Illness Chief complaint: Induction of labor for postdates : 6 Term pregnancies: 3 pregnancies: 1 Living children: 4 History of Abortions: Spontaneous and Elective: 1 History of sections: No History of : No Date of last menstrual period: 12/29/24 QUINN: 10/05/25 Gestational Age (weeks): 40 Gestational Age (days): 2 Gestational age based on last menstrual period: 40 Indication for induction: post dates, medical complication (Chronic hypertension) and other (AMA) History of present illness: The patient is a 40-year-old -1-1-4 at 40-2/7 weeks admitted for induction of labor secondary to postdates, AMA, chronic hypertension on labetalol,and a maternal BMI of 46.5. Patient has been seeing Yakelin at the [place] [facility]. Group B strep is negative. History of Present Dating criteria: LMP confirmed by 2nd trimester US Adequate Care: Yes Ultrasounds: normal mid trimester US Obstetrical complications: gestational hypertension Medical complications: none (AMA, maternal BMI of 46.5.) Labs Maternal Blood Type: A Pos Labs: Positive: Rubella Titre, Negative: RPR, Hepatitis B, HIV, Chlamydia, Gonorrhea and Group Beta Strep and Unknown: Herpes Type 1, Herpes Type 2 and Covid-19 Review of Systems Review of Systems Narrative Review of Systems: Patient reports occasional contractions or vaginal bleeding. Past Medical History Surgical History SURGICAL: Negative Section Past Medical History Comments PMH COMMENT: Patient has chronic hypertension on labetalol. She has no history of gestational diabetes. Meds Home Medications and Allergies Home Medications ?Medication ?Instructions ?Recorded ?Confirmed ?Type vits no.124-ferrous fum 1 tab PO QDAY 12/24/18 10/03/25 History 27 mg iron-folic acid 800 mcg tablet ( Vitamin) folic acid 1 mg tablet 1 mg PO DAILY 09/27/25 10/03/25 History Allergies Allergy/AdvReac Type Severity Reaction Status Date / Time No Known Allergies Allergy Verified 10/03/25 14:58 OB Exam Physical Exam Vital signs: Temp Pulse Resp BP O2 Del Method 98.1 F 69 20 123/65 Room Air 10/07/25 13:00 10/07/25 13:57 10/07/25 13:00 10/07/25 13:57 10/07/25 13:00 Detailed Labor and Delivery Exam Dilation (cm): 2-3 Effacement (%): 60 Cervix position: posterior station: -3 Consistency: medium Presentation: Vertex Membranes: intact monitor accelerations: 15x15 monitor decelerations: None nursing home variability: Moderate (11-25) Contraction frequency (min): Rare Tachysystole: No Contraction intensity: Mild OB Assessment & Plan Assessment and Plan (1) Supervision of high risk , unspecified, third trimester: Status: Acute (2) Chronic hypertension affecting : Status: Acute (3) AMA (advanced maternal age) multigravida 35+: Status: Acute Additional Plan Induction method: per misoprostol protocol Plan: induction (3) AMA (advanced maternal age) multigravida 35+ Qualifiers: Trimester: third trimester Qualified Code(s): O09.523 - Supervision of elderly multigravida, third trimester
[2025-10-07 14:51] LABS: Basophils # (Auto) 0.0 Thou/mm3 (0.0-0.2); Basophils % (Auto) 0 % (0-2.5); Eosinophils # (Auto) 0.2 Thou/mm3 (0.0-0.5); Eosinophils % (Auto) 3 % (0-10); Hematocrit 36.5 % (36.0-46.0); Hemoglobin 12.5 g/dL (12.0-16.0); Immature Granulocytes Auto 0.07 Thou/mm3 (0.00-0.00); Lymphocytes # (Auto) 1.8 Thou/mm3 (1.0-4.8); Lymphocytes % (Auto) 21 % (10-50); Mean Corpuscular HGB Conc 34.2 g/dl (31.0-37.0); Mean Corpuscular Hemoglobin 29.4 pg (25.0-35.0); Mean Corpuscular Volume 86 fL (80-100); Monocytes # (Auto) 0.8 Thou/mm3 (0.0-0.8); Monocytes % (Auto) 9 % (0-12); Neutrophils # (Auto) 5.6 Thou/mm3 (1.8-7.7); Neutrophils % (Auto) 67 % (37-80); Nucleated Red Blood Cell # 0.00 Thou/mm3 (0.00-0.00); Nucleated Red Blood Cell % 0 /100 WBC (0); Platelet Count 218 Thou/mm3 (140-440); RDW Standard Deviation 43.5 fL (36.4-46.3); Red Blood Count 4.25 Miln/mm3 (4.00-5.20); White Blood Count 8.4 Thou/mm3 (3.6-11.0)
[2025-10-07 15:32] LABS: Syphilis Nonreactive (Nonreactive)
[2025-10-07 15:39] LABS: Alanine Aminotransferase 10 U/L (10-49); Albumin, Serum 3.6 gm/dL (3.5-5.0); Albumin/Globulin Ratio 1.7 (1.2-2.2); Alkaline Phosphatase 139 U/L (46-116); Anion Gap 11 (7-16); Aspartate Amino Transferase 16 U/L (0-34); BUN/Creatinine Ratio 23 Ratio (12-20); Bilirubin,Total 0.3 mg/dL (0.3-1.2); Blood Urea Nitrogen 9 mg/dL (9-23); Calcium 8.8 mg/dL (8.3-10.6); Calcium (Corrected) 9.1 mg/dL (8.5-10.1); Carbon Dioxide 20.6 mMol/L (20.0-31.0); Chloride 109 mMol/L (98-107); Creatinine (Component) 0.4 mg/dL (0.6-1.3); Estimated Creatinine Clearance 216.4 mL/min (>60); Globulin 2.1 gm/dL (2.3-3.5); Glucose 82 mg/dL (74-106); Osmolality,Calculated 278 (275-295); Potassium 4.0 mMol/L (3.4-5.1); Sodium 141 mMol/L (136-145); Total Protein 5.7 gm/dL (5.7-8.2); eGFR > 60 See Note
[2025-10-07] MEDS: LABETALOL 100 MG TABLET PO (21:08)
[2025-10-08] VITALS (77 sets, daily range): BP systolic 102–171; BP diastolic 53–80; PULSE 57–88; RESP 14–18; TEMP 36.6–36.9; O2SAT 90–100
[2025-10-08] MEDS: LABETALOL 100 MG TABLET PO ×2 (10:48→20:56)
[2025-10-08] MEDS: OXYTOCIN in NS 30 units 30 UNIT/500 ML BAG IV (11:13)
[2025-10-08] MEDS: RINGERS LACTATED 1000 ML 1,000 ML 100 ML IV (16:35)
[2025-10-09] VITALS (69 sets, daily range): BP systolic 108–151; BP diastolic 55–84; PULSE 54–120; RESP 14–19; TEMP 36.3–36.8; O2SAT 88–100
--- NOTE | 2025-10-09 01:49 | PD.LDDELS ---
Data (Mathur) Data Hx Section: No : 6 Term: 3 : 1 Livin Abortions: Spontaneous & Theraputic: 1 Delivery Data (Mathur) Labor Data ROM date: 10/08/25 ROM time: 15:40 Amniotic membrane rupture type: Artificial Amniotic fluid description: Clear Delivery Data Delivered by: Artemio Conroy Delivery Method Presentation: Vertex
[2025-10-09] MEDS: IBUPROFEN TAB 400 MG TABLET 800 MG PO ×2 (02:39→19:34)
[2025-10-09 05:45] LABS: Basophils # (Auto) 0.0 Thou/mm3 (0.0-0.2); Basophils % (Auto) 0 % (0-2.5); Eosinophils # (Auto) 0.2 Thou/mm3 (0.0-0.5); Eosinophils % (Auto) 1 % (0-10); Hematocrit 37.3 % (36.0-46.0); Hemoglobin 12.5 g/dL (12.0-16.0); Immature Granulocytes Auto 0.08 Thou/mm3 (0.00-0.00); Lymphocytes # (Auto) 1.6 Thou/mm3 (1.0-4.8); Lymphocytes % (Auto) 10 % (10-50); Mean Corpuscular HGB Conc 33.5 g/dl (31.0-37.0); Mean Corpuscular Hemoglobin 28.6 pg (25.0-35.0); Mean Corpuscular Volume 85 fL (80-100); Monocytes # (Auto) 1.2 Thou/mm3 (0.0-0.8); Monocytes % (Auto) 8 % (0-12); Neutrophils # (Auto) 12.4 Thou/mm3 (1.8-7.7); Neutrophils % (Auto) 80 % (37-80); Nucleated Red Blood Cell # 0.00 Thou/mm3 (0.00-0.00); Nucleated Red Blood Cell % 0 /100 WBC (0); Platelet Count 178 Thou/mm3 (140-440); RDW Standard Deviation 42.5 fL (36.4-46.3); Red Blood Count 4.37 Miln/mm3 (4.00-5.20); White Blood Count 15.4 Thou/mm3 (3.6-11.0)
--- NOTE | 2025-10-09 07:40 | CHAP ---
Patient was visited by a Spiritual Care Volunteer on 10/08/2025 between 0900 and 1200 and received comfort, encouragement and/or prayer. Patient also received a blessing on infant and family.
--- NOTE | 2025-10-09 08:08 | ESPR_ITS ---
Subjective Subjective Interval history: Patient is a 40-year-old -1-1-5 day 0 status post vaginal delivery around 1:00 in the morning by Dr. Hightower. This morning she is resting comfortably in bed. The baby and her are at bedside. The plan will be to discharge her home tomorrow morning early so she can enjoy Thanksgiving with her family. She is tolerating a general diet and denying any pain. She did have an epidural this time and delivery was uncomplicated. Exam Vital Signs Temp Pulse Resp BP Pulse Ox O2 Del Method 98.1 F 72 16 119/62 96 Room Air 10/09/25 04:12 10/09/25 03:42 10/09/25 04:12 10/09/25 03:42 10/09/25 03:46 10/07/25 13:00 Narrative Exam Patient is alert and orient x 3 resting comfortably no apparent distress Constitutional Constitutional: no acute distress Comments: Fundus is firm nontender Objective Labs 10/09/25 05:13 10/07/25 13:55 Labs: Laboratory Results - last 24 hr 10/09/25 05:13 WBC 15.4 H D RBC 4.37 Hgb 12.5 Hct 37.3 MCV 85 MCH 28.6 MCHC 33.5 RDW Std Deviation 42.5 Plt Count 178 D Neut % (Auto) 80 Lymph % (Auto) 10 [place] % (Auto) 8 Eos % (Auto) 1 Baso % (Auto) 0 Neut # (Auto) 12.4 H Lymph # (Auto) 1.6 [place] # (Auto) 1.2 H Eos # (Auto) 0.2 Baso # (Auto) 0.0 Immature Gran # (Auto) 0.08 H Absolute Nucleated RBC 0.00 Immature Gran % 1 H Nucleated RBC % 0 Assessment & Plan Problem List (1) Chronic hypertension affecting : Problem details: Home on labetalol. Blood pressure stable no signs of PIH. Status: Acute (2) AMA (advanced maternal age) multigravida 35+: Status: Acute (3) care following vaginal delivery: Problem details: Patient is doing well. 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 Status: Acute Time Spent With Patient Time: Total time spent is greater than 50% in coordination of care (as documented) at patient's floor/unit and/or counseling patient: Time with patient: less than 15 minutes
[2025-10-09] MEDS: DOCUSATE SOD 100 MG CAPSULE PO (08:47)
[2025-10-09] MEDS: LABETALOL 100 MG TABLET PO (08:47)
[2025-10-10 04:00] VITALS: BP 108/64; PULSE 69; RESP 16; TEMP 36.4; O2SAT 98
[2025-10-10 07:20] VITALS: BP 115/77; PULSE 63; RESP 16; TEMP 36.6; O2SAT 98
--- NOTE | 2025-10-10 08:24 | PD.LDDELS ---
Data (Mathur) Data Hx Section: No : 6 Term: 3 : 1 Livin Abortions: Spontaneous & Theraputic: 1 Delivery Data (Mathur) Labor Data Induction/Augmentation Agent: Cytotec-PO, Pitocin and Artificial ROM ROM date: 10/08/25 ROM time: 15:41 Amniotic membrane rupture type: Artificial Amniotic fluid description: Clear Delivery Data Onset of labor date: 10/08/25 Onset of labor time: 19:45 Complete dilation date: 10/09/25 Complete dilation time: 01:06 delivery date: 10/09/25 delivery time: 01:41 Placenta delivery date: 10/09/25 Placenta delivery time: 01:44 Stage 1 total time: Labor - Stage 1 Duration 5 hours and 21 minutes Delivered by: Dr Conroy Delivery nurse: Anmol Bridges RN [place] nurse: Fanny Davila RN Kiln Packer at delivery: No Support person(s) at delivery: FOB Other staff at delivery: Tamiko MISHRAassistant printer floor covering Method Delivery method: Normal Vaginal Delivery Presentation: Vertex Anesthesia Type Anesthesia Type: Epidural Placenta Placenta delivery description: Spontaneous Cord blood sent to lab: Yes cord blood collection: Cord Blood Type Episiotomy Episiotomy description: None Umbilical Cord cord description: 3 Vessels Data (Mathur) [place] Data order: 1 's gender: Female Identification band number: [id number] weight (gms): 3530 g Weight (pounds): 7 lbs and 12.5 ozs length: 49.53 cm 1 minute: 8 5 minutes: 8
--- NOTE | 2025-10-10 08:25 | ESDS_ITS ---
DS: Providers Provider Date of admission: 10/07/25 12:51 Primary care physician: Jamie Bentley MD Admitting Provider: Sharlene Lima MD (OB Clinic) Attending Provider on Admission: Artemio Conroy MD Consults: 10/09/25 02:43 Referral Routine Comment: Attending Provider on DC: Artemio Conroy MD Discharging Provider: Artemio Conroy MD DS: Diagnosis Discharge Diagnosis (1) care following vaginal delivery: Status: Acute Problem List Completed Was Problem List Reviewed/Reconciled?: Yes Summary/Hosp Course Brief History: The patient is a 40-year-old -1-1-4 at 40-2/7 weeks admitted for induction of labor secondary to postdates, AMA, chronic hypertension on labetalol,and a maternal BMI of 46.5. Patient has been seeing Yakelin at the [place] [facility]. Group B strep is negative. Peripartum Data Delivery Method: Normal Vaginal Delivery Episiotomy Description: None Time Spent with Patient Time attestation: Total time spent providing and/or coordinating discharge services: Exam Vital Signs Temp Pulse Resp BP Pulse Ox O2 Del Method 97.6 F 69 16 108/64 98 Room Air 10/10/25 04:00 10/10/25 04:00 10/10/25 04:00 10/10/25 04:00 10/10/25 04:00 10/10/25 04:00 Discharge Plan Plan Patient Disposition: HOME (Self Care) Patient condition on transfer: Stable Prescriptions/Referrals Prescriptions/Med Rec: New docusate sodium [Stool Softener] 100 mg capsule 100 mg PO QDAY 30 Days Qty: 30 0RF ibuprofen 600 mg tablet 600 mg PO Q6H MDD 4 PRN (Reason: fever or pain) 10 Days Qty: 40 0RF Continued labetalol 100 mg tablet 100 mg PO BID 90 Days Qty: 180 4RF Discontinued aspirin 81 mg tablet 81 mg PO QDAY 90 Days Qty: 90 3RF folic acid 1 mg tablet 1 mg PO DAILY Patient Comments: TAKE 1 TABLET BY MOUTH ONCE DAILY No Action Vitamin 27 mg iron- 800 mcg Tablet 1 tab PO QDAY Referrals: Jamie Bentley MD [Primary Care Provider, Family Practice] Atremio Conroy MD [Physician, LAWN SERVICE SUPERVISOR] Patient/Caregiver Discharge Instructions Meds to Beds: Yes Discharge Activity: activity as tolerated Education Materials: Expressing Your Milk, After Delivery Concerns, Breast Care After , Nutrition While , Understanding Depression, : Caring for Yourself, Feel Healthy After, Delivery After Stay Fit Print Language: Bahamian Stand Alone Forms: Lauren Award Info., Patient Portal Info Letter Discharge Order Discharge Orders: Discharge (Routine); Ordered 10/10/25 Ordered By: Artemio Conroy Planned Discharge Date 10/10/25
--- NOTE | 2025-10-10 08:25 | PD.LDPPPRG ---
Subjective Subjective Interval history: Delivery type: Patient doing well this morning. No acute complaints. Ambulating, tolerating p.o., and voiding without difficulty. HTN/Pre-E screen negative: No CP, SOB, HODGES, visual changes, RUQ pain. : Yes Lochia: diminishing Bowel: Flatus + / BM + UOP: Voiding freely Exam Vital Signs Temp Pulse Resp BP Pulse Ox O2 Del Method 97.6 F 69 16 108/64 98 Room Air 10/10/25 04:00 10/10/25 04:00 10/10/25 04:00 10/10/25 04:00 10/10/25 04:00 10/10/25 04:00 Constitutional Constitutional: no acute distress Routine HEENT Exam Head: Present normocephalic and atraumatic Eye: Present EOMI and PERRL ENT: Present mucous membranes moist Routine Neck Exam Neck: Present supple and trachea midline Routine Respiratory Exam Respiratory: Present chest non-tender, lungs clear, normal breath sounds and no resp distress Routine Cardiovascular Exam Cardiovascular: Present RRR Routine Abdominal Exam Abdominal: Present soft and normoactive bowel sounds Routine Extremities Exam Extremities: Present full ROM Routine Skin Exam Skin: Present intact, dry and warm Routine Neurological Exam Neurological: Present alert, oriented X3 and CN II-XII intact Routine Psychiatric Exam Psychiatric: Present normal affect and normal thought process Objective Labs 10/09/25 05:13 10/07/25 13:55 Assessment & Plan Problem List (1) Chronic hypertension affecting : Status: Acute (2) AMA (advanced maternal age) multigravida 35+: Status: Acute (3) care following vaginal delivery: Status: Acute Assessment and plan: 1. Continue routine /post-op care 2. Labs reviewed, cbc appropriate 3. Remove dressing/Benavides 4. Encourage to ambulate, shower 5. Encourage PO intake, breast feeding Time Spent With Patient Time: Total time spent is greater than 50% in coordination of care (as documented) at patient's floor/unit and/or counseling patient:
[2025-10-10] MEDS: DOCUSATE SOD 100 MG CAPSULE PO (08:40)
[2025-10-10] MEDS: IBUPROFEN TAB 400 MG TABLET 800 MG PO (08:43)
[2025-10-10 08:44] VITALS: BP 115/77; PULSE 63
[2025-10-10] MEDS: LABETALOL 100 MG TABLET PO (08:44)
[2025-10-10] MEDS: DIPHTH,PERTUSS(ACELL),TET VAC 0.5 ML SYR- ADULT IMi (10:45)
== END 2025-10-10 11:45 | disposition home or self-care (01) | DRG 560 ==
LOC: S4SX 10-09 01:48 → S4NX 10-09 04:03
PROVIDERS: Admitting Provider Obstetrics & Gynecology; PCP Family Medicine; Visit Provider Obstetrics & Gynecology
DX: O48.0 Post-term pregnancy (principal); O10.92 Unspecified pre-existing hypertension complicating childbirth; Z37.0 Single live birth; Z3A.40 40 weeks gestation of pregnancy; Z23 Encounter for immunization; Z79.899 Other long term (current) drug therapy
CPT/HCPCS: 36415; 80053; 85025; 86780; 86850; 86900; 86901; 90715; J2590; J2795; J3010; J7120; A9270

== ENCOUNTER 2025-11-01 09:26 | Outpatient (AMB) | payer MEDICAID, SELFPAY ==
[2025-11-01 09:42] VITALS: BP 137/86; PULSE 67; RESP 19; TEMP 36.4; O2SAT 97; BMI 43.0
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
== END 2025-11-01 09:58 | disposition home or self-care (01) ==
LOC: HODSOBC 09:26
PROVIDERS: PCP Family Medicine; Referring Provider Family Medicine; Supervising Provider Obstetrics & Gynecology; Visit Provider Obstetrics & Gynecology
DX: Z39.2 Encounter for routine postpartum follow-up (principal); O10.93 Unspecified pre-existing hypertension complicating the puerperium
CPT/HCPCS: 99213; G0463